=== PATIENT | female | born 1965 | race Caucasian/White ===

== ENCOUNTER 2017-12-07 18:11 | Emergency (ER) | payer BC, OTHER ==
[~2017-12-07] VITALS: Ht 157.5 cm; Wt 85.5 kg
[2017-12-07 18:16] VITALS: TEMP 36.7; Ht 157.5 cm; Wt 85.5 kg
--- NOTE | 2017-12-07 18:55 | DIAGNOSTIC IMAGING REPORT ---
R FINGER(S) MIN 2 VIEWS ROUTINE CLINICAL HISTORY: right pinky finger pain pain COMPARISON: None. DISCUSSION: Soft tissue edema about the proximal interphalangeal joint. Osseous structures show no acute process. Slight deformity distal aspect proximal phalanx possibly secondary to old posterior back changes. Small old avulsion base distal phalanx. Soft tissue edema. No acute bony abnormality. IMPRESSION: No acute bony abnormality. Slight lateral position of the middle and distal phalanges relation to the proximal may be positional and/or muscle spasm bases. Deformity distal aspect proximal phalanx felt to be secondary to old trauma. Soft tissue edema. The above report was generated using voice recognition software. It may contain grammatical, syntax or spelling errors. Electronically signed by: Mando Martinez M.D. 12/07/2017 6:54 PM Dictated Date/Time: 12/07/2017 6:52 PM
--- NOTE | 2017-12-07 19:35 | EMERGENCY ROOM VISIT NOTE ---
ED Visit Note First contact with patient: 18:55 CHIEF COMPLAINT: Finger injury HISTORY OF PRESENT ILLNESS: This 52-year-old female patient presents to the emergency department immediately after injuring the right fifth finger when she accidentally caught it on the edge of the counter The patient rates the pain as shooting and 4/10. The patient has limited range of motion of the finger. No numbness or tingling. No lacerations. No other injuries. The patient has had previous fracture to this finger. The patient has taken nothing for the pain. REVIEW OF SYSTEMS: A 6 system review of systems was completed with positives and pertinent negatives in the HPI. ALLERGIES: No known drug allergies MEDICATIONS: Adderall PMH: Otherwise healthy SOCIAL HISTORY: Denies tobacco use. The patient is employed. PHYSICAL EXAM: Vital Signs: Reviewed Nurse's notes, vital signs stable. GENERAL : 52-year-old female, in no acute distress, but appears to be in pain, well- developed, well-nourished. MUSCULOSKELETAL: The right fifth finger is slightly flexed at the PIP joint. There is swelling at the PIP joint. She has difficulty extending the finger at the PIP and DIP joint. There is no laceration. Capillary refill less than 2 seconds. No tenderness of the remaining fingers or hand. Full range of motion of the wrist. NEURO: Alert and oriented to person, place, and time. Normal sensation to light and sharp touch. EMERGENCY DEPARTMENT COURSE: I examined the patient. An x-ray of the right fifth finger was reviewed Patient Name: OLLIE BERUMEN Unit Number: [id number] Dictated: 12/07/171851 Transcribed: 12/07/171851 MS Printed Date/Time: [~ rep prt dt]/[~ rep prt tm] [~ rep ct labl] - [~ rep ct ivnm] [facility] [place] [address] Dictated: 12/07/171851 Transcribed: 12/07/171851 MS Printed Date/Time: [~ rep prt dt]/[~ rep prt tm] [~ rep ct labl] - [~ rep ct ivnm] IMPRESSION: No acute bony abnormality. Slight lateral position of the middle and distal phalanges relation to the proximal may be positional and/or muscle spasm bases. Deformity distal aspect proximal phalanx felt to be secondary to old trauma. Soft tissue edema. The above report was generated using voice recognition software. It may contain grammatical, syntax or spelling errors. Electronically signed by: Mando Martinez M.D. 12/07/2017 6:54 PM Dictated Date/Time: 12/07/2017 6:52 PM The status of this report is Signed. Draft = Not yet reviewed or approved by Radiologist. Signed = Reviewed and approved by Radiologist. <AttendingPhy></AttendingPhy> <FamilyPhy>Julissa Gomez D.O.</FamilyPhy> < PrimaryPhy>Julissa Gomez D.O.</PrimaryPhy> <UnitNumber>[id number]</UnitNumber > <VisitNumber>[id number]</VisitNumber> <PatientName>OLLIE BERUMEN</ PatientName> <DateOfBirth>1965</DateOfBirth> <Location>[facility]</Location> < ServiceDate>12/07/17</ServiceDate> <MNE>ESINDI</MNE> <OrderingPhy>ED, PROTOCOL</ OrderingPhy> <OrderingPhyMNE>f rep ord dr moreno</OrderingPhyMNE> <DictatingPhyMNE> f rep dict dr moreno</DictatingPhyMNE> <CCListMNE>f rep ct herone</CCListMNE> < AdmittingPhyMNE>f pt admit dr moreno</AdmittingPhyMNE> <AttendingPhyMNE>f pt attend dr moreno</AttendingPhyMNE> <ConsultingPhyMNE>f pt consult dr moreno</ConsultingPhyMNE> <FamilyPhyMNE>f pt fam dr moreno</FamilyPhyMNE> <OtherPhyMNE>f pt other dr moreno</OtherPhyMNE> < PrimaryPhyMNE>f pt prim care dr moreno</PrimaryPhyMNE> <ReferringPhyMNE>f pt referring dr moreno</ReferringPhyMNE> The finger was immobiziled by a metal splint under my direction and the position was satisfactory. Neurovascular status rechecked and intact. The patient was discharged home in good condition. DIAGNOSIS: Right fifth finger injury-questionable tendon injury DISCHARGE INSTRUCTIONS: Ice and elevation for 24-48 hrs. Keep the metal splint in place. Tylenol and ibuprofen as needed for pain Ibuprofen 800 mg and/or Tylenol 1000 mg every 8 hours. You may also alternate these medications for more effective pain relief: Ibuprofen --4 HRS--> Tylenol --4 HRS--> ibuprofen --4 HRS--> Tylenol .... Please take Ultram 1 tab every 4 hours for severe pain. This may be taken with Tylenol and ibuprofen. Please call the orthopedic doctor in the morning for a follow-up appointment. This chart was completed in part utilizing [employer] Speech Voice Recognition software. Attempts were made to minimize the grammatical errors, random word insertions, pronoun errors and incomplete sentences. Any formal questions or concerns about the content, text or information contained within the body of this dictation should be directly addressed to the provider for clarification.
[2017-12-07] MEDS ORDERED: TRAM-10 PO (19:37)
[2017-12-07] MEDS ORDERED: PRLSR20 PO (19:47)
[2017-12-07] MEDS ORDERED: AMPH20CA3 PO (19:47)
[2017-12-07] MEDS ORDERED: AMPH10TA2 PO (19:47)
[2017-12-07 19:54] VITALS: BP 135/90; PULSE 90; O2SAT 97
== END 2017-12-07 19:55 | disposition home or self-care (01) ==
LOC: C.EDB 18:12 → C.EDD 19:55
DX: S69.91XA Unspecified injury of right wrist, hand and finger(s), initial encounter (principal); W22.09XA Striking against other stationary object, initial encounter; Z79.899 Other long term (current) drug therapy

== ENCOUNTER 2023-10-17 05:14 | Observation (INO) ==
--- NOTE | 2023-09-27 10:43 | PAT Medication Instructions ---
Medication Instructions Date of Service September 27, 2023 Home Medications dextroamphetamine-amphetamine 10 mg tablet (Adderall) 10 mg PO BID dextroamphetamine-amphetamine 20 mg tablet (Adderall) 20 mg PO QAM ibuprofen 600 mg tablet 600 mg PO TID PRN minocycline 50 mg capsule 50 mg PO UD PRN omeprazole 20 mg capsule,delayed release 20 mg PO QAM triamcinolone acetonide 0.1 % topical cream 1 applic topical UD PRN valacyclovir 500 mg tablet 1,000 mg PO UD PRN furosemide 20 mg tablet 20 mg PO Q OTHER DAY Continue as directed minocycline 50 mg capsule 50 mg PO UD PRN(if needed) valacyclovir 500 mg tablet 1,000 mg PO UD PRN(if needed) ASK your surgeon for instructions ibuprofen 600 mg tablet 600 mg PO TID PRN STOP taking 24 hours before surgery triamcinolone acetonide 0.1 % topical cream 1 applic topical UD PRN DO NOT take the morning of surgery dextroamphetamine-amphetamine 10 mg tablet (Adderall) 10 mg PO BID dextroamphetamine-amphetamine 20 mg tablet (Adderall) 20 mg PO QAM Take morning of surgery With a small sip of water, OTHERWISE NOTHING TO EAT OR DRINK AFTER MIDNIGHT: omeprazole 20 mg capsule,delayed release 20 mg PO QAM Take evening before surgery dextroamphetamine-amphetamine 10 mg tablet (Adderall) 10 mg PO BID Other Notes If you have any questions please call us at [phone] or [phone] or [phone] or [phone]
--- NOTE | 2023-10-05 10:26 | Anesthesiology Consultation ---
Date of Service October 05, 2023 Assessment & Plan (1) Encounter for pre-operative examination: - Infectious disease screening: Per assessment on 10/05/23: No known infectious disease contacts or current infectious disease symptoms. No noted Covid positive test result in past 90 days. - Outpatient joint assessment: Pt currently scheduled for inpatient pathway. If surgeon requests review for outpatient joint pathway, patient is an acceptable candidate for outpatient joint program from anesthesia standpoint pending surgeon's office assessment that patient is motivated, has good support and completes Same Day Joint Program preop requirements. - PCP visit (09/20/23): "acceptable risk for proposed procedure" - Hx PONV: Patient reports had good outcome when scope patch used for right knee surgery performed 2020. Will order scope patch for DOS. Chart Review Chart Review: Acceptable Risk for Surgery and Patient seen in Pre Admission Testing Teaching & Discussion Pre-Anesthesia Teaching/Discussion Notes: Instructed NPO after midnight before surgery,except medications with 15 cc of water. Medication instructions provided according to the PAT guidelines. History Surgery Operation Date: 10/17/23 10:20 Proposed Procedures p Left Total Knee Arthroplasty - Otis Magnolia Fragoso MD Height/Weight Height: 5 ft 2.25 in Weight: 82.1 kg Allergies Allergy/AdvReac Type Severity Reaction Status Date / Time cephalexin AdvReac Intermediate stomach Verified 09/29/23 14:43 pain Medications Home Medications Medication Instructions Recorded Confirmed Last Taken dextroamphetamine-amphetamine 10 10 mg PO BID 07/09/21 09/27/23 Unknown mg tablet (Adderall) dextroamphetamine-amphetamine 20 20 mg PO QAM 07/09/21 09/27/23 07/15/21 mg tablet (Adderall) ibuprofen 600 mg tablet 600 mg PO TID PRN Pain 07/09/21 09/27/23 Unknown minocycline 50 mg capsule 50 mg PO UD PRN FOLLICULITIS 07/09/21 09/27/23 Unknown omeprazole 20 mg capsule,delayed 20 mg PO QAM 07/09/21 09/27/23 07/16/21 05:30 release triamcinolone acetonide 0.1 % 1 applic topical UD PRN Skin 07/09/21 09/27/23 Unknown topical cream Irritation valacyclovir 500 mg tablet 1,000 mg PO UD PRN Cold Sores 07/09/21 09/27/23 Unknown furosemide 20 mg tablet 20 mg PO Q OTHER DAY 09/27/23 09/27/23 Unknown Past Medical History Medical History Prediabetes History of blood transfusion R/t partial hysterectomy/blood loss (2002) History of COVID-19 x3, most recent 2021- symptoms resolved ADD (attention deficit disorder) Cervical cancer 2002, partial hysterectomy Micha's disease Under surveillance, 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 Acid reflux Exercise / Class Metabolic Activity II 4-5 Yardwork/Stairs/Walk up hill (one FS (no CP, no SOB)) Past Family History Family History Other No family history of adverse response to anesthesia Past Surgical History Surgical History History of [place]roscopic [place] [facility] Nausea and vomiting after administration of anesthetic agent with c-sections Scope patch used with 06/2021 right knee arthroscopy at [facility] History of root canal procedure 08/2023 Hx of tooth extraction History of hemorrhoidectomy History of x4 History of partial hysterectomy Past Anesthesia History No Hx of Anesthesia Complications and No Family Hx of Anesthesia Complications History of PONV History of PONV and Hx of Motion Sickness Social History Smoking Status: Never smoker Do You Dip or Chew Tobacco: No Hx Alcohol Use: Yes Alcohol type: wine alcohol intake frequency: a few times a week Hx Substance Use: No substance use type: does not use Review of Systems Patient denies chest pain, shortness of breath, dyspnea on exertion, fever, chills, cough, wheezing, palpitations. Physical Exam Vital Signs VITALS BP 113/76 P 74 TEMP 98.0 SP02 96%RA RESP 18 PHYSICAL Full cervical extension range of motion. Full TMJ range of motion. TMD 3 finger breaths Mallampati Score 2 Dentition: intact, + upper front crowns, lower right side crown Lungs: clear throughout to auscultation Cardiac: regular rate and rhythm, no murmurs noted Spine: normal Carotid arteries: negative bruit Extremities: no LE edema Lab Results Anesthesia Preop Results Results Anesthesia Widget: WBC 6.07 K/ul (4.8-10.8) 10/05/23 Hgb 13.0 g/dl (12.0-16.0) 10/05/23 Hct 38.0 % (37.0-47.0) 10/05/23 Plt 321 K/uL (130-400) 10/05/23 Na 138 mmol/L (136-145) 10/05/23 K 3.7 mmol/L (3.5-5.1) 10/05/23 Cl 104 mmol/L (98-107) 10/05/23 CO2 28 mmol/L (21-32) 10/05/23 BUN 19 mg/dl (6-23) 10/05/23 Creat 0.83 mg/dl (0.6-1.2) 10/05/23 Glucose Level 96 mg/dl (70-99(Fasting)) 10/05/23 PTT 28.2 Seconds (21.0-31.0) 10/05/23 Urine Color Yellow 10/05/23 Urine Appearance Clear (Clear) 10/05/23 Urine pH 5.5 (4.5-7.5) 10/05/23 Urine Specific [place] 1.026 (1.000-1.030) 10/05/23 Urine Protein Trace (Negative) H 10/05/23 Urine Glucose (UA) Negative (Negative) 10/05/23 Urine Ketones Trace (Negative) H 10/05/23 Urine Blood Negative (Negative) 10/05/23 Urine Nitrite Negative (Negative) 10/05/23 Urine Bilirubin Negative (Negative) 10/05/23 Urine Urobilinogen Negative (Negative) 10/05/23 Urine Leukocyte Esterase 1+ (Negative) H 10/05/23 Urine WBC (Auto) 1-5 /hpf (0-5) 10/05/23 Urine RBC (Auto) 5-10 /hpf (0-4) H 10/05/23 Urine Hyaline Casts (Auto) 1-5 /lpf (0-5) 10/05/23 Urine Epithelial Cells (Auto) >30 /lpf (0-5) H 10/05/23 Urine Bacteria (Auto) Negative (Negative) 10/05/23 Blood Type A Positive 10/05/23 Antibody Screen NEGATIVE 10/05/23 Testing Electrocardiogram Date: 09/20/23 Findings: + NSR @ (80) Chest X-Ray Date: 10/05/23 FINDINGS: Cardiac and mediastinal and hilar silhouettes are within normal limits. No pneumothorax, pleural effusion, airspace consolidation or pulmonary edema. Bones appear grossly intact. IMPRESSION: No acute process.
[~2023-10-17 05:14] MED LIST: CHECK SCOPOLAMINE PATCH PLACEMENT SCH
--- OUTSIDE RECORDS SUMMARY | 2023-10-17 05:24 | External Medical Summary | Summary of Care ---
Author Name Unknown Organization [facility] Address [address] [place] [address] Phone [phone] Care Team Providers Care Tax Services Manager Name Role Phone Akil Watters MD Primary Care Provider [phone] Reason for Visit * Reason Onset Date Comments Health Maintenance 10/13/2023 Encounter Details Date Type Department Care Team (Late st Contact Info) Description 10/13/2023 Telephone Family Practice [facility] [address] [place] [address] Akil Watters MD [address] [place] [address] Health Maintenance Allergies Active Allergy Reactions Criticality Noted Date Comments Cephalexin 09/06/2012 Stomach pain documented as of this encounter (statuses as of 10/13/2023) Medications Medication Sig Dispensed Refills Start Date End Date Status Benzonatate 100 MG Oral Capsule (Tessalon Perles) Take 1 Capsule (100 mg) as needed in the morning AND 1 Capsule (100 mg) as needed at noon AND 1 Capsule (100 mg) as needed in the evening by mouth for Cough. Do not cut, crush, or chew.. 50 Capsule 1 12/22/2021 Active Additional Information Patient not taking.Reported on 09/20/2023 valACYclovir HCl 1 GM Oral Tablet (Valtrex)Indications:H erpetic gingivostomatitis Take 1 Tablet by mouth in the morning and 1 Tablet before bedtime. 4 Tablet 5 01/02/2023 Active Minocycline HCl 50 MG Oral Capsule take 1 capsule once daily IN THE MORNING 30 Capsule 11 03/01/2023 Active Omeprazole 20 MG Oral Capsule Delayed Release (PriLOSEC)Indications: Encounter for long-term (current) use of medications Take 1 Capsule by mouth in the morning. 1 hour before the first meal of the day.. 90 Capsule 1 08/08/2023 Active Penicillin V Potassium 500 MG Oral Tablet (Veetids) take 1 tablet by mouth every 6 hours until finished 0 08/02/2023 Active Furosemide 20 MG Oral Tablet (Lasix) Take one every other day in the morning 60 Tablet 3 08/07/2023 Active Celecoxib 200 MG Oral Capsule (CeleBREX)Indications: Generalized osteoarthritis Take 1 Capsule by mouth in the morning. For pain. 90 Capsule 3 08/07/2023 Active Additional Information Patient not taking.Reported on 09/20/2023 Minoxidil for Women 2 % External Solution (Minoxidil) Apply 1 mL of solution to affected areas of scalp twice daily for one month 60 mL 1 08/07/2023 Active Amphetamine-Dextroamph et ER 20 MG Oral Capsule Extended Release 24 Hour (Adderall XR)Indications:Attenti on deficit disorder without hyperactivity,MEDICATI ON USE AGREEMENT Take 1 Capsule by mouth in the morning. Do not cut, crush, or chew.. 90 Capsule 0 09/01/2023 Active Amphetamine-Dextroamph etamine 10 MG Oral Tablet (Adderall)Indications: Attention deficit disorder without hyperactivity,MEDICATI ON USE AGREEMENT Take 2 Tablets by mouth in the morning. 3 month supply. 180 Tablet 0 09/28/2023 Active documented as of this encounter (statuses as of 10/13/2023) Active Problems Problem Noted Date Diagnosed Date Dependent edema 08/07/2023 Generalized osteoarthritis 08/07/2023 Prediabetes 08/07/2023 Obesity, Class I, BMI 30.0-34.9 (see actual BMI) 02/14/2023 Gastroesophageal reflux disease with esophagitis 06/20/2018 Rosacea 01/21/2014 MEDICATION USE AGREEMENT 06/22/2012 Attention deficit disorder without hyperactivity 06/01/2009 documented as of this encounter (statuses as of 10/13/2023) Resolved Problems Problem Noted Date Diagnosed Date Resolved Date History of cervical cancer 03/08/2018 0 06/20/2018 Spider angioma 01/21/2014 06/16/2021 Poikiloderma of [place] 01/21/201405/28 Other seborrheic keratosis 01/21/2014 0 06/20/2018 Other chronic allergic conjunctivitis 03/09/2010 07/13/2017 Herpetic gingivostomatitis 03/09/2010 0 07/13/2017 ADVANCE DIRECTIVE INFORMATION 11/05/2008 03/08/2018 Overview: No, Advance Directive brochure offered , patient declined. DYSFUNCT EUSTACHIAN TUBE 12/04/2006 Acute bronchitis, antibiotics not indicated 10/19/2004 11/24/2007 Acute nasopharyngitis 10/19/20042006 Epistaxis 10/19/2004 12/04/2006 Major depressive disorder 03/15/2004 Overview: ICD-10 update of inactive term Hemorrhoids 07/18/2003 07/13/2017 Cancer of cervix 03/03/2003 03/08/2018 Allergic rhinitis 08/18/1999 07/13/2017 documented as of this encounter (statuses as of 10/13/2023) Immunizations Name Administration Dates Next Due PPD 08/31/2007,03/27/2005 Seasonal Influenza, Split, IIV3, With Preserve, Inj 10/27/2008 TDAP (age 10 and older)(Boostrix) 07/09/2020 TDAP (age 11 and older)(Adacel) 08/29/2006 documented as of this encounter Social History Tobacco Use Types Packs/Day Years Used Date Smoking Tobacco: Never Smokeless Tobacco: Never Alcohol Use Standard Drinks/Week Comments Yes 0 (1 standard drink = 0.6 oz pur e alcohol) occ PHQ-2 Answer Date Recorded PHQ Adult Total Score 0 09/20/2023 Hunger Vital Sign Answer Date Recorded Within the past 12 months, y ou worried that your food would run out before you got the money to buy more. Never true 02/15/20 23 Within the past 12 months, t he food you bought just didn't last and you didn't have money to get more. Never true 02/14/2023 Sex and Gender Information Value Date Recorded Sex Assigned at Female 02/14/2023 9:04 AM EDT Gender Identity Female 02/14/2023 9:04 AM EDT Sexual Orientation Straight 02/14/2023 9: 04 AM EDT Job Start Date Occupation Industry Not on file Not on file Not on file documented as of this encounter Miscellaneous Notes * Telephone Encounter - Darlene Aly LPN - 10/13/2023 8:49 AM EST Care Gaps Comprehensive Care Outreach Last Office/Telemedicine Visit: 09/20/2023 (in office), 02/14/2023 (telemedicine) Next Office Visit: Visit date not found Hemoglobin AIC Results: Lab Results Component Value Date/Time HEMOGLOBIN A1C - [facility] 5.9 (H) 07/15/2021 12:21 PM Reviewed Health Maintenance below: Health Maintenance Topic Date Due Hepatitis B (1 of 3 - 3-dose series) Never done COVID-19 Vaccine (1) Never done Hepatitis C Screening Never done Colorectal Cancer Screening Never done Zoster Vaccines (1 of 2) Never done HbA1c 07/15/2022 Ov Cologuard follow will returned Lab Declined Care Gap Outreach Action Taken: Spoke to patient documented in this encounter Plan of Treatment Upcoming Encounters Date Type Department Care Team (Late st Contact Info) Description 12/11/2023 2:20 PM EST Office Visit Nutrition & Weight Management, [facility] [address] [place] [id number] Sudha Douglas PA-C [address] [place] [id number] Health Maintenance Due Date Last Done Comments Hepatitis B (1 of 3 - 3-dose series) 1965 COVID-19 Vaccine (#1) 02/18/1965 Hepatitis C Screening 1982 Cologuard 2009 Colonoscopy 2009 Colorectal Cancer Screening 2009 Fecal Occult Blood Test 2009 Sigmoidoscopy 2009 Zoster Vaccines (1 of 2) 2014 HbA1c 07/15/2022 07/15/2021 Influenza Vaccine (FLU shot) (#1) 2023 10/27/2008, 10/27/2008 Mammogram 08/04/2024 08/04/2023, 04/2015, 03/30/2015, Additional history exists Depression Screening 09/20/2024 09/20/2023 Lipid Panel 07/15/2026 07/15/2021, 06/2014, 10/27/2008 DTaP,Tdap,and Td Vaccines (3 - Td or Tdap) 07/09/2030 07/09/2020, 08/29/2006, 04/27/1993 GARDASIL-HPV IMMUNIZATION SERIES Aged Out No longer eligible based on patient's age to complete this topic MENINGOCOCCAL (MENACTRA/MENVEO) Aged Out No longer eligible based on patient's age to complete this topic Pneumococcal Vaccine: Pediatrics (0 to 5 Years) and At-Risk Patients (6 to 64 Years) Aged Out No longer eligible based on patient's age to complete this topic documented as of this encounter Medical Devices Not on filedocumented as of this encounter Care Teams Tax Services Manager Relationship Specialty Start Date End Date Akil Watters MD [address] [place] [address] PCP - General Family Medicine 01/25/20 documented as of this encounter
[2023-10-17] MEDS ORDERED: ROPIVACAINE 0.5% HCL/PF 150 MG, BUPIVACAINE 0.75% MPF 20 ML, EPINEPHrine 0.15 MG, Ketor... INFIL SCH (06:00)
[2023-10-17] MEDS ORDERED: TRANEXAMIC ACID 1,000 MG **IV Intra-op IV SCH (06:00)
[2023-10-17] MEDS ORDERED: LR 500ML BOLUS, THEN 15ML/HR IV SCH (06:00)
[2023-10-17] MEDS ORDERED: ACETAMINOPHEN 500 MG TAB PO SCH (06:00)
[2023-10-17] MEDS ORDERED: LR 60ML/HR IV SCH (06:00)
[2023-10-17] MEDS ORDERED: SCOPOLAMINE 1 MG TDSY TD SCH (06:00)
[2023-10-17] MEDS ORDERED: ceFAZolin 2000MG 2,000 MG/15 ML SYR IV SCH (06:00)
[2023-10-17] MEDS ORDERED: TRANEXAMIC ACID 1,000 MG **IV Pre-op IV SCH (06:00)
[2023-10-17] MEDS ORDERED: Scopolamine 1 MG TDSY TD SCH (06:00)
[2023-10-17] MEDS: CeleBREX 200 MG CAP PO SCH ×2 (06:03→06:40)
[2023-10-17] MEDS ORDERED: BUPIVACAINE 0.25% PF 30 ML VIAL ONE (06:16)
[2023-10-17] MEDS ORDERED: BUPIVACAINE 0.5 % 5 MG/1 ML PF 10ML VIAL ONE (06:16)
--- NOTE | 2023-10-17 06:35 | History & Physical Bridge Note ---
Date of Service October 17, 2023 History & Physical Bridge Note I have examined the patient, reviewed the History & Physical and in the interval since the performance of the History & Physical I have noted the following changes of clinical significance: no changes noted
[2023-10-17] MEDS ORDERED: ORTHO JOINT ANESTHETIC ONE (06:38)
[2023-10-17] MEDS ORDERED: MIDAZOLAM HCL 1 MG/ML 2ML VIAL ONE ×3 (06:44→08:32)
[2023-10-17] MEDS ORDERED: fentaNYL citrate PF 100 MCG/2 ML VIAL ONE (06:44)
[2023-10-17] MEDS ORDERED: ONDANSETRON INJ 2 MG/ML 2 ML VIAL IV PRN ×2 (06:59→09:42)
[2023-10-17] MEDS ORDERED: ATROPINE SULFATE 0.1 MG/ML 10ML SYR IV PRN (06:59)
[2023-10-17] MEDS ORDERED: fentaNYL citrate PF 100 MCG/2 ML VIAL IV PRN (06:59)
[2023-10-17] MEDS ORDERED: ePHEDrine sulfate 50 MG/ML AMP IV PRN (06:59)
[2023-10-17] MEDS ORDERED: PROPOFOL IV EMULSION 10 MG/ML 20 ML VIAL IV ONE ×3 (07:09→09:25)
--- NOTE | 2023-10-17 09:30 | Post Operative Brief Note ---
Immediate Post Op Note v1 Date of Surgery October 17, 2023 Pre & Post Diagnosis Operation Date: 10/17/23 07:00 Pre-Op Diagnosis: Left knee degenerative joint disease Post-Op Diagnosis: Left knee degenerative joint disease I identified the patient and participated in the time-out.: Yes Procedure Operation Date: 10/17/23 07:00 Actual Procedures p Left Total Knee Arthroplasty(Left) - Otis Fragoso MD Surgeon Otis Fragoso MD Clinical Social Work Aide LEYDA Cordon PA-C (No fellow avail) Estimated Blood Loss 50 Findings Consistent with Post-Op Diagnosis Fluids 1000 cc Specimens Left knee contents Anesthesia Type MAC Spinal Regional Complications none
--- NOTE | 2023-10-17 09:30 | Operative Report ---
Post Operative Report Pre & Post Diagnosis Operation Date: 10/17/23 07:00 Pre-Op Diagnosis: Left knee degenerative joint disease Post-Op Diagnosis: Left knee degenerative joint disease I identified the patient and participated in the time-out.: Yes Procedure Operation Date: 10/17/23 07:00 Actual Procedures p Left Total knee replacement, imageless computer assisted navigation (Left) - Otis Fragoso MD Surgeon Otis Fragoso MD Claims Director LEYDA Cordon PA-C (No fellow avail) Estimated Blood Loss 50 Findings See Below Examined Under Anesthesia: ROM -- There was 5 degrees to 125 degrees of flexion, when extended her knee the was a palpable clunk. Ligamentous examination -- revealed stable Simi, posterior drawer, varus and valgus stress at 5 and 30 degrees. [place] Grade IV changes of medial compartment, grade II-III changes patellofemoral compartment, grade II changes lateral compartment. Fluids 1000 cc Specimens Left knee contents Anesthesia Type MAC Spinal Regional Complications none Indications This is a 58-year-old female who has clinical and radiographic findings consistent with osteoarthritis of the a left knee and varus alignemnt. I recommended that a left total knee replacement be performed. The patient understands the risks of surgery, which include but not limited to: bleeding, infection, re-operation, damage to nerves and arteries, continued knee pain, knee stiffness, DVT, and . The patient understands all of these instructions and explanations, all of his questions have been satisfactorily addressed and the patient has elected to proceed. Informed consent was signed. Description of Procedure IMPLANTS: 1. Femur: Triathlon #3 Left PS, with distal femoral pegs. 2. Tibia: Triathlon #3 Beemer. 3. Insert: Triathlon #3 x 11 mm PS X3 poly. 4. Patella: Triathlon A29 x 8 mm X3 poly. 5. Palacos cement. LEYDA Cordon PA-C is assisting with positioning, retracting, and closure due to fellow not available. Procedure: The patient was taken to the Operating Room and placed in the supine position after spinal and adductor canal nerve block was administered. My initials and a multidisciplinary time-out were used to identify the left leg as the correct operative limb. A tourniquet was placed high in the thigh. Prior to the incision, 2 grams of intravenous Ancef were given. The left leg was then prepped and draped in a standard sterile fashion. An Esmarch was used to exsanguinate the leg and the tourniquet was inflated to 250 mmHg. The planned mid-line 20 cm incision was created exposing the extensor mechanism. The medial parapatellar arthrotomy was made and the patella was everted. The patella was addressed first. It was prepared by reaming from 24 mm down to 15 mm. An A29 button was found to fit best. The peg holes were made in the standard fashion. The femur was addressed next and using computer assisted OrthoAlign with 3 degrees of flexion and 0 degrees of valgus, removing 10 mm in the standard fashion for the distal cut. The cut was made and the 4-in-1 cutting block for a size 3 femur was placed. These cuts and the cuts to place the box were made in the standard fashion. The distal peg were created after testing knee stability with trial components in and using the trial femur as a guide in the standard fashion. Our attention was then drawn to the tibia cut with using imageless computer assisted OrthoAlign, taking 2 mm from the medial low side. There was sufficient extension and flexion gap to fit a 9 mm spacer after using cutting block to remove 1.5 mm off medial side. A #3 Tibial baseplate fit well. A trial with a 9 mm spacer showed excellent stability in both flexion and extension, with good ligament balance, and thumbs free patellar tracking. Range of motion of 0-130 degrees. The tibial baseplate was prepped for the keel and stem. All components were removed. 90 ml of total knee cocktail were injected into the soft tissues and periosteum. All surfaces were copiously irrigated prior to placement of the components. The femoral component followed by Tibial baseplate were cemented in place and a 11 mm trial placed. Next, the patellar button was placed using the same cement. Once the cement had cured, the range of motion and stability were unchanged. The 11 mm X3 poly was placed. Again, the range of motion and stability were unchanged. The tourniquet was deflated. Hemostasis was obtained. The extensor mechanism was closed with 1-0 Vicryl and 0 Stratafix with the knee bent approximately 60 degrees in a standard fashion. The peritenon and deep fascia was closed with 2-0 Vicryl. The subcutaneous layer was closed with 3-0 Vicryl. The skin was closed with Zipline and shield. The limb was cleaned and dried. 4x4 dressing was placed over top followed by ABDs, sterile Webril, and a foot to thigh Ham bandage. The patient was then transferred to the Recovery Room in stable condition. The sponge and needle counts were correct. POST-OP INSTRUCTIONS: The patient will be WBAT. The patient will be admitted to the hospital. Complete 24-hour course antibiotics. Labs will be obtained during the stay. DVT prophylaxis will included Eliquis for 6 weeks, TEDs, and mechanical foot pumps while in hospital. The dressing will be changed postop day #2-3 and covered with a Silverlon dressing. I attest to the content of the Intraoperative Record and any orders documented therein. Any exceptions are noted below.
[2023-10-17] MEDS ORDERED: bisacodyL 10 MG SUPP PR PRN (09:42)
[2023-10-17] MEDS ORDERED: NALOXONE HCL 0.4 MG/1 ML VIAL/CARP IV PRN (09:42)
[2023-10-17] MEDS ORDERED: diphenhydrAMINE 50 MG/ML VIAL IV PRN (09:42)
[2023-10-17] MEDS ORDERED: METOCLOPRAMIDE HCL INJ 5 MG/ML 2 ML VIAL IV PRN (09:42)
[2023-10-17] MEDS ORDERED: HYDROmorphone INJ 0.5 MG/0.5 ML SYR IV PRN (09:42)
[2023-10-17] MEDS ORDERED: ALUMINUM/MAGNESIUM SUSP 30 ML UDC PO PRN (09:42)
[2023-10-17] MEDS ORDERED: MAGNESIUM HYDROXIDE SUSP 30 ML UDC PO PRN (09:42)
[2023-10-17] MEDS ORDERED: oxyCODONE HCL IR 5 MG TAB (IMMEDIATE RELEASE) PO PRN (09:42)
--- NOTE | 2023-10-17 09:42 | Operative Report ---
Post Operative Report Pre & Post Diagnosis Operation Date: 10/17/23 07:00 Pre-Op Diagnosis: Left knee degenerative joint disease Post-Op Diagnosis: Left knee degenerative joint disease I identified the patient and participated in the time-out.: Yes Procedure Operation Date: 10/17/23 07:00 Actual Procedures p Left Total Knee Arthroplasty(Left) - Otis Fragoso MD Surgeon Otis Fragoso MD Neurophysiologist LEYDA Cordon PA-C (No fellow avail) Estimated Blood Loss 50 Findings Consistent with Post-Op Diagnosis Specimens Knee bone and soft tissue Description of Procedure I was present during the entire case assisting with positioning, prepping, draping, wound retraction, wound closure, and dressing application. No fellow present. Please see Dr. Fragoso procedure note for specifics of the case. I attest to the content of the Intraoperative Record and any orders documented therein. Any exceptions are noted below.
[2023-10-17] MEDS ORDERED: valACYclovir HCL 500 MG TABLET PO PRN (09:45)
[2023-10-17] MEDS ORDERED: MINOCYCLINE HCL 50 MG CAP PO PRN (09:45)
[2023-10-17] MEDS ORDERED: SODIUM CHLORIDE 0.9% 1,000 ML IV SCH (09:45)
--- NOTE | 2023-10-17 11:44 | XRay Report ---
TWO VIEWS LEFT KNEE CLINICAL HISTORY: Postoperative examination. FINDINGS: AP and crosstable lateral portable views of the left knee are obtained. A left knee arthrop lasty is in near anatomic alignment. There has been undersurface remodeling of the patella. No acute fracture is seen. Soft tissue edema and subcutaneous gas are expected postsurgical findings. IMPRESSION: Expected postoperative changes status post left knee arthroplasty. No acute fracture is s een. ACT 112: Negative or not required by law. Electronically signed by: Milton Bruno M.D. 10/17/2023 11:43 AM
[2023-10-17] MEDS: ACETAMINOPHEN 500 MG TAB PO SCH ×2 (13:20→22:32)
[2023-10-17] MEDS: KETOROLAC TROMETHAMINE 15 MG/ML VIAL IV SCH ×2 (13:20→20:33)
--- NOTE | 2023-10-17 14:30 | Anesthesiology Progress Note ---
Date of Service October 17, 2023 Anesthesia Post Procedure Vital Signs Vital Signs: Temp Pulse Pulse Resp BP Pulse Ox O2 Del Method 10/17/23 13:28 Room Air 10/17/23 13:27 36.2 C L 84 18 121/80 96 Room Air 10/17/23 12:30 72 18 122/70 100 Room Air 10/17/23 12:00 36.3 C L 71 18 108/71 100 Room Air 10/17/23 11:28 36.4 C L 90 16 134/80 100 Room Air 10/17/23 11:10 36.4 C L 56 L 14 119/74 99 Room Air 10/17/23 11:00 56 L 12 103/65 96 Room Air 10/17/23 10:50 56 L 12 103/65 96 Room Air 10/17/23 10:40 58 L 15 106/60 95 Room Air 10/17/23 10:30 58 L 12 108/67 98 Room Air 10/17/23 10:20 58 L 12 118/76 98 Room Air 10/17/23 10:10 61 11 L 123/75 97 Room Air 10/17/23 10:00 77 23 103/79 97 Oxymask 10/17/23 09:50 85 20 98/66 L 94 Oxymask 10/17/23 09:44 36 C L 91 H 14 114/72 97 Oxymask 10/17/23 05:54 36.6 C 89 18 142/84 H 98 Room Air O2 Flow Rate 10/17/23 13:28 10/17/23 13:27 10/17/23 12:30 10/17/23 12:00 10/17/23 11:28 10/17/23 11:10 10/17/23 11:00 10/17/23 10:50 10/17/23 10:40 10/17/23 10:30 10/17/23 10:20 10/17/23 10:10 10/17/23 10:00 6 10/17/23 09:50 6 10/17/23 09:44 6 10/17/23 05:54 Transfer of Care Handoff Completed per policy Notes Mental Status: alert / awake / arousable and participated in evaluation Patient Amnestic to Procedure: Yes Nausea / Vomiting: adequately controlled Pain: adequately controlled Airway Patency, RR, SpO2: stable & adequate BP & HR: stable & adequate Hydration State: stable & adequate Neuraxial Anesthesia: was administered and sensory block is resolving Anesthetic Complications: no major complications apparent and Pt Satisfied with anesthetic care
[2023-10-17] MEDS: ceFAZolin 2000MG 2,000 MG/15 ML SYR IV SCH ×2 (14:31→22:32)
[2023-10-17] MEDS ORDERED: AMPHETAMINE ASP/SULF/DEXTRAMPH 5 MG TAB PO SCH (15:00)
--- NOTE | 2023-10-17 15:40 | Orthopedic Progress Note ---
Date of Service October 17, 2023 Assessment & Plan (1) Osteoarthritis of left knee: Plan: POD #0 s/p L TKA, doing as well as expected. Resume diet. WBAT with walker. OOB to chair. Continue pain control. Check labs tomorrow. DVT prophylaxis: TEDs 3 weeks, foot pumps while in hospital, Eliquis 2.5 mg BID for 6 weeks. PT/OT. Change dressing to Silverlon Post-op day 2-3. D/C planning. Present on Admission?: Yes Admission and Anticipated Discharge Date Admission Date: October 17, 2023 Subjective Doing well, no complaints. Was up and went to bathroom earlier today. Physical Exam Physical Exam: LLE: BCR < 2 sec. Sensation to light touch intact distally. Wiggling ankle and toes. Calf soft and non-tender. Dressing is clean, dry, intact. Unable to do a straight leg raise. Results & Data Vital Signs (Past 12 Hours) Vital Signs Temp Pulse Pulse Resp BP Pulse Ox O2 Del Method 10/17/23 14:35 36.4 C L 59 L 18 111/66 98 Room Air 10/17/23 13:28 Room Air 10/17/23 13:27 36.2 C L 84 18 121/80 96 Room Air 10/17/23 12:30 72 18 122/70 100 Room Air 10/17/23 12:00 36.3 C L 71 18 108/71 100 Room Air 10/17/23 11:28 36.4 C L 90 16 134/80 100 Room Air 10/17/23 11:10 36.4 C L 56 L 14 119/74 99 Room Air 10/17/23 11:00 56 L 12 103/65 96 Room Air 10/17/23 10:50 56 L 12 103/65 96 Room Air 10/17/23 10:40 58 L 15 106/60 95 Room Air 10/17/23 10:30 58 L 12 108/67 98 Room Air 10/17/23 10:20 58 L 12 118/76 98 Room Air 10/17/23 10:10 61 11 L 123/75 97 Room Air 10/17/23 10:00 77 23 103/79 97 Oxymask 10/17/23 09:50 85 20 98/66 L 94 Oxymask 10/17/23 09:44 36 C L 91 H 14 114/72 97 Oxymask 10/17/23 05:54 36.6 C 89 18 142/84 H 98 Room Air O2 Flow Rate 10/17/23 14:35 10/17/23 13:28 10/17/23 13:27 10/17/23 12:30 10/17/23 12:00 10/17/23 11:28 10/17/23 11:10 10/17/23 11:00 10/17/23 10:50 10/17/23 10:40 10/17/23 10:30 10/17/23 10:20 10/17/23 10:10 10/17/23 10:00 6 10/17/23 09:50 6 10/17/23 09:44 6 10/17/23 05:54 Laboratory Results Impressions Knee X-Ray 10/17/23 09:42 TWO VIEWS LEFT KNEE CLINICAL HISTORY: Postoperative examination. FINDINGS: AP and crosstable lateral portable views of the left knee are obtained. A left knee arthroplasty is in near anatomic alignment. There has been undersurface remodeling of the patella. No acute fracture is seen. Soft tissue edema and subcutaneous gas are expected postsurgical findings. IMPRESSION: Expected postoperative changes status post left knee arthroplasty. No acute fracture is seen. ACT 112: Negative or not required by law. Electronically signed by: Milton Bruno M.D. 10/17/2023 11:43 AM
[2023-10-17] MEDS ORDERED: TRANEXAMIC ACID / 0.7% NACL 1,000 MG/100 ML BAG IV SCH (15:45)
[2023-10-17] MEDS: Scopolamine CHECK PATCH PLACEMENT SCH (15:47)
[2023-10-17] MEDS: FERROUS GLUCONATE 324 MG TAB PO SCH (17:16)
[2023-10-17] MEDS: ASCORBIC ACID 500 MG TAB PO SCH (17:16)
[2023-10-17] MEDS: DOCUSATE SODIUM 100 MG CAP PO SCH (20:33)
[2023-10-17] MEDS ORDERED: SENNA 8.6 MG TAB PO SCH (21:00)
[2023-10-17] MEDS ORDERED: CeleBREX 200 MG CAP PO SCH (21:00)
[2023-10-18] MEDS: KETOROLAC TROMETHAMINE 15 MG/ML VIAL IV SCH ×2 (02:30→08:01)
[2023-10-18] MEDS: Scopolamine CHECK PATCH PLACEMENT SCH ×2 (02:33→08:01)
[2023-10-18] MEDS: ACETAMINOPHEN 500 MG TAB PO SCH (04:52)
[2023-10-18 06:39] LABS: Hematocrit (blood only) 30.1 % (37.0-47.0); Hemoglobin 10.1 g/dl (12.0-16.0); Mean Corpuscular Hemoglobin 30.9 pg (25.0-34.0); Mean Corpuscular Hgb Conc 33.6 g/dL (32.0-36.0); Mean Platelet Volume 9.9 fL (9.4-12.4); Platelet Count 303 K/uL (130-400); RDW Coefficient of Variation 13.4 % (11.5-14.5); RDW Standard Deviation 45.5 fL (36.4-46.3); Red Blood Count 3.27 M/uL (4.20-5.40); White Blood Count 9.49 K/ul (4.8-10.8)
[2023-10-18 07:09] LABS: Calcium 8.9 mg/dl (8.6-10.3); Est GFR (Non-African American) 84.5 ml/min; Potassium 4.1 mmol/L (3.5-5.1)
[2023-10-18] MEDS: DOCUSATE SODIUM 100 MG CAP PO SCH (08:00)
[2023-10-18] MEDS ORDERED: dexAMETHasone 4 MG TAB PO SCH (08:00)
[2023-10-18] MEDS: ASCORBIC ACID 500 MG TAB PO SCH (08:00)
[2023-10-18] MEDS: FERROUS GLUCONATE 324 MG TAB PO SCH (08:00)
[2023-10-18] MEDS ORDERED: AMPHETAMINE ASP/SULF/DEXTRAMPH 20 MG TAB PO SCH (09:00)
[2023-10-18] MEDS ORDERED: MULTIVITAMIN TAB PO SCH (09:00)
[2023-10-18] MEDS ORDERED: PANTOprazole 40 MG TAB PO SCH (09:00)
[2023-10-18] MEDS ORDERED: APIXABAN 2.5 MG TAB PO SCH (09:00)
[2023-10-18] MEDS ORDERED: FUROSEMIDE 20 MG TAB PO SCH (09:00)
--- NOTE | 2023-10-18 09:49 | Orthopedic Progress Note ---
Date of Service October 18, 2023 Assessment & Plan (1) Osteoarthritis of left knee: Plan: POD #1 s/p L TKA, doing as well as expected. Resume diet. WBAT with walker. OOB to chair. Continue pain control. DVT prophylaxis: TEDs 3 weeks, foot pumps while in hospital, Eliquis 2.5 mg BID for 6 weeks. PT/OT. Change dressing to Silverlon Post-op day 2-3 with or in our office as scheduled on 10/23 due to the holiday. Plan for discharge to home today with HH. Discharge instructions reviewed. Findings discussed with Dr. Fragoso Admission and Anticipated Discharge Date Admission Date: October 17, 2023 Subjective Doing well, crying tears of darrell because of how well she feels. Very pleased. No post op nausea, vomiting. Has ambulated in room and with PT. Had a little "unsteadiness" in left knee yesterday, but improved today. Physical Exam Musculoskeletal: Left knee: Dressings clean, dry and intact. Able to actively SLR with no extensor lag. Distal pulses 1+, Strength 5/5. No calf pain with palpation. Results & Data Vital Signs (Past 12 Hours) Vital Signs Temp Pulse Resp BP Pulse Ox O2 Del Method 10/18/23 07:34 36.5 C 72 16 120/72 99 Room Air 10/18/23 02:48 36.5 C 65 16 132/80 99 Room Air 10/17/23 22:46 36.5 C 67 16 118/78 98 Room Air Laboratory Results 10/18/23 Range/Units 05:40 WBC 9.49 (4.8-10.8) K/ul RBC 3.27 L (4.20-5.40) M/uL Hgb 10.1 L (12.0-16.0) g/dl Hct 30.1 L (37.0-47.0) % MCV 92.0 (80.0-100.0) fL MCH 30.9 (25.0-34.0) pg MCHC 33.6 (32.0-36.0) g/dL RDW Std Deviation 45.5 (36.4-46.3) fL RDW Coeff of Joshua 13.4 (11.5-14.5) % Plt Count 303 (130-400) K/uL MPV 9.9 (9.4-12.4) fL Sodium 138 (136-145) mmol/L Potassium 4.1 (3.5-5.1) mmol/L Chloride 109 H (98-107) mmol/L Carbon Dioxide 24 (21-32) mmol/L Anion Gap 5 (3-11) BUN 20 (6-23) mg/dl Creatinine 0.77 (0.6-1.2) mg/dl Est Cr Clr Drug Dosing 79.0 ml/min Est GFR ( Amer) 98.0 ml/min Est GFR (Non-Af Amer) 84.5 ml/min BUN/Creatinine Ratio 26.0 H (10-20) Glucose 124 H (70-99(Fasting)) mg/dl Calcium 8.9 (8.6-10.3) mg/dl Diagnostic Findings TWO VIEWS LEFT KNEE CLINICAL HISTORY: Postoperative examination. FINDINGS: AP and crosstable lateral portable views of the left knee are obtained. A left knee arthroplasty is in near anatomic alignment. There has been undersurface remodeling of the patella. No acute fracture is seen. Soft tissue edema and subcutaneous gas are expected postsurgical findings. IMPRESSION: Expected postoperative changes status post left knee arthroplasty. No acute fracture is seen.
--- NOTE | 2023-10-18 10:39 | Discharge Summary ---
Date of Service October 18, 2023 Discharge Data Procedures Performed Operation Date: 10/17/23 07:00 Actual Procedures p Left Total Knee Arthroplasty(Left) - Otis Fragoso MD Hospital Course (1) Osteoarthritis of left knee: Patient was kept in observation overnight after undergoing an elective left total knee arthroplasty by Dr. Fragoso on October 17, 2023. Her surgery was performed with spinal anesthetic and peripheral nerve block. She tolerated the procedure well without any intraoperative complications. She was given 2 g of IV Ancef for surgical prophylaxis which was continued for 24 hours after her procedure. Postoperative x-rays were performed in the recovery room of her left knee and showed a stable left knee prosthesis with expected postoperative findings. She was allowed out of bed, weight-bear as tolerated on the left lower extremity with the assistance of a walker. She was given IV Dilaudid, oxycodone, Tylenol and Celebrex for postoperative pain control. She was started on Eliquis 2.5 mg for DVT prophylaxis and this will be continued for 6 weeks after her surgery. She was also given AV impulse boots and YARELY stockings during her inpatient stay. Her home medications were resumed. She was given a regular diet during her inpatient stay and did not develop any postoperative nausea or vomiting after her procedure. She was seen and evaluated by physical therapy and Occupational Therapy. She was deemed safe out of bed. Her postoperative dressings remained intact, clean and dry and these will be changed later by home health or as an outpatient in our office. Her vital signs remained stable. Labs remained within acceptable limits. She did not develop any postoperative symptoms from acute blood loss anemia. She was discharged to her home in stable condition on October 18, 2023. Discharge instructions were reviewed. Medications were sent to the pharmacy. She understands and agrees with plan.
== END 2023-10-18 12:26 | disposition home health service (06) ==
LOC: 3E 05:14 → ASU 05:14

== ENCOUNTER 2024-01-30 06:43 | Observation (INO) ==
--- NOTE | 2024-01-16 16:19 | Anesthesiology Consultation ---
Date of Service January 16, 2024 Assessment & Plan (1) Encounter for pre-operative examination: - PONV: will order scop patch for DOS. - Outpatient joint assessment: Patient is currently scheduled for inpatient pathway. If re-evaluated and patient/surgeon requests outpatient pathway, patient is acceptable candidate for outpatient joint program from anesthesia standpoint pending surgeon's office assessment of pt motivation/support/completion of same day joint program preop requirements. - Per senior receptionist on 01/16/24: No known infectious disease contacts, current infectious disease symptoms in past 10 days or COVID positive test result in the past 30 days. Chart Review Chart Review: Acceptable Risk for Surgery and Patient NOT seen in Pre Admission Testing History Surgery Operation Date: 01/30/24 08:10 Proposed Procedures p Right Total Knee Arthroplasty - Otis Magnolia Fragoso MD Height/Weight Height: 5 ft 2 in Weight: 83.915 kg Allergies Allergy/AdvReac Type Severity Reaction Status Date / Time cephalexin AdvReac Mild stomach Verified 01/16/24 15:23 pain Medications Home Medications Medication Instructions Recorded Confirmed Last Taken dextroamphetamine-amphetamine 10 10 mg PO BID 07/09/21 01/16/24 10/16/23 13:00 mg tablet (Adderall) dextroamphetamine-amphetamine 20 20 mg PO QAM 07/09/21 01/16/24 10/16/23 07:00 mg tablet (Adderall) minocycline 50 mg capsule 50 mg PO UD PRN FOLLICULITIS 07/09/21 01/16/24 10/11/23 omeprazole 20 mg capsule,delayed 20 mg PO QAM 07/09/21 01/16/24 10/17/23 04:30 release valacyclovir 500 mg tablet 1,000 mg PO UD PRN Cold Sores 07/09/21 01/16/24 Unknown furosemide 20 mg tablet (Lasix) 20 mg PO Q OTHER DAY 09/27/23 01/16/24 10/14/23 acetaminophen 500 mg tablet 1,000 mg PO Q8 PRN Pain 01/16/24 01/16/24 Unknown (Tylenol Extra Strength) Past Medical History Medical History Acid reflux ADD (attention deficit disorder) Cervical cancer 2002, partial hysterectomy Micha's disease Under surveillance, 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 History of blood transfusion R/t partial hysterectomy/blood loss (2002) History of COVID-19 x3, most recent 2021- symptoms resolved Prediabetes stable Past Family History Family History Other No family history of adverse response to anesthesia Past Surgical History Surgical History History of arthroscopic knee surgery rt History of x4 History of hemorrhoidectomy History of left knee replacement History of partial hysterectomy History of root canal procedure 08/2023 Hx of tooth extraction Nausea and vomiting after administration of anesthetic agent with c-sections Scope patch used with 06/2021 right knee arthroscopy at [facility] [place] Social History Smoking Status: Never smoker Do You Dip or Chew Tobacco: No Hx Alcohol Use: Yes Alcohol type: wine and hard liquor alcohol intake frequency: 0-2 drinks per day Hx Substance Use: No substance use type: does not use Lab Results Anesthesia Preop Results Results Anesthesia Widget: WBC 7.20 K/ul (4.8-10.8) 01/12/24 Hgb 12.1 g/dl (12.0-16.0) 01/12/24 Hct 36.4 % (37.0-47.0) L 01/12/24 Plt 317 K/uL (130-400) 01/12/24 Na 140 mmol/L (136-145) 01/12/24 K 3.6 mmol/L (3.5-5.1) 01/12/24 Cl 109 mmol/L (98-107) H 01/12/24 CO2 25 mmol/L (21-32) 01/12/24 BUN 21 mg/dl (6-23) 01/12/24 Creat 0.76 mg/dl (0.6-1.2) 01/12/24 Glucose Level 97 mg/dl (70-99(Fasting)) 01/12/24 PTT 26 Seconds (21-31) 01/12/24 Urine Color Dark Yellow 01/12/24 Urine Appearance Clear (Clear) 01/12/24 Urine pH 5.0 (4.5-7.5) 01/12/24 Urine Specific [place] 1.031 (1.000-1.030) H 01/12/24 Urine Protein Negative (Negative) 01/12/24 Urine Glucose (UA) Negative (Negative) 01/12/24 Urine Ketones Negative (Negative) 01/12/24 Urine Blood Negative (Negative) 01/12/24 Urine Nitrite Negative (Negative) 01/12/24 Urine Bilirubin Negative (Negative) 01/12/24 Urine Urobilinogen Negative (Negative) 01/12/24 Urine Leukocyte Esterase Negative (Negative) 01/12/24 Blood Type A Positive 01/12/24 Antibody Screen NEGATIVE 01/12/24 Testing Electrocardiogram Date: 09/20/23 NSR, rate 80 bpm Chest X-Ray Date: 10/05/23 No acute process.
[~2024-01-30 06:43] MED LIST changes: +BUPIVACAINE 0.25% PF 30 ML VIAL ONE; +BUPIVACAINE 0.5 % 5 MG/1 ML PF 10ML VIAL ONE; -CHECK SCOPOLAMINE PATCH PLACEMENT SCH; +MIDAZOLAM HCL 1 MG/ML 2ML VIAL ONE; +fentaNYL citrate PF 100 MCG/2 ML VIAL ONE
[2024-01-30] MEDS: LR 60ML/HR IV SCH (07:14)
[2024-01-30] MEDS: Scopolamine 1 MG TDSY TD SCH (07:16)
[2024-01-30] MEDS: ACETAMINOPHEN 500 MG TAB PO SCH ×2 (07:16→14:54)
[2024-01-30] MEDS: CeleBREX 200 MG CAP PO SCH (07:16)
[2024-01-30] MEDS ORDERED: LIDOCAINE 2% 2 ML VIAL/AMP(20MG/ML) INFIL ONE (08:08)
[2024-01-30] MEDS ORDERED: PROPOFOL IV EMULSION 10 MG/ML 20 ML VIAL IV ONE ×3 (08:08→11:57)
[2024-01-30] MEDS ORDERED: ONDANSETRON INJ 2 MG/ML 2 ML VIAL ONE (08:11)
[2024-01-30] MEDS ORDERED: DEXAMETHASONE SOD INJ 4 MG/ML VIAL ONE (08:11)
[2024-01-30] MEDS ORDERED: fentaNYL citrate PF 100 MCG/2 ML VIAL IV PRN (08:14)
[2024-01-30] MEDS ORDERED: ONDANSETRON INJ 2 MG/ML 2 ML VIAL IV PRN ×2 (08:14→12:37)
[2024-01-30] MEDS ORDERED: ATROPINE SULFATE 0.1 MG/ML 10ML SYR IV PRN (08:14)
[2024-01-30] MEDS ORDERED: PROMETHAZINE HCL 6.25 MG in SODIUM CHLORIDE 0.9% 50 ML IV PRN (08:14)
[2024-01-30] MEDS ORDERED: ePHEDrine sulfate 50 MG/ML AMP IV PRN (08:14)
--- NOTE | 2024-01-30 08:58 | History & Physical Bridge Note ---
Date of Service January 30, 2024 History & Physical Bridge Note I have examined the patient, reviewed the History & Physical and in the interval since the performance of the History & Physical I have noted the following changes of clinical significance: no changes noted
[2024-01-30] MEDS: TRANEXAMIC ACID 1,000 MG **IV Pre-op IV SCH (09:33)
[2024-01-30] MEDS: ceFAZolin 2000MG 2,000 MG/15 ML SYR IV SCH ×2 (09:45→18:09)
[2024-01-30] MEDS ORDERED: MIDAZOLAM HCL 1 MG/ML 2ML VIAL ONE (09:55)
--- OUTSIDE RECORDS SUMMARY | 2024-01-30 09:58 | External Medical Summary | Summary of Care ---
Author Name Unknown Organization [facility] Address [address] [facility] [place] [address] Phone [phone] Care Team Providers Care Automobile Mechanic Name Role Phone Akil Watters MD Primary Care Provider [phone] Reason for Visit * Reason Comments pre-op exam Pt here for pre op c learance for right knee replacement on 01/30/24 Encounter Details Date Type Department Care Team (Latest Contact Info) Description 01/12/2024 1:20 PM EST Office Visit Family [facility] [address] [place] [id number] Sudha Blair CRNP [address] [place] [address] Pre-operative cardiovascular examination*; Chronic pain of right knee; Generalized osteoarthritis; Prediabetes; Gastroesophageal reflux disease with esophagitis, unspecified whether hemorrhage; Attention deficit disorder without hyperactivity Allergies Active Allergy Reactions Criticality Noted Date Comments Cephalexin 09/06/2012 Stomach pain documented as of this encounter (statuses as of 01/18/2024) Medications Medication Sig Dispensed Refills Start Date End Date Status valACYclovir HCl 1 GM Oral Tablet (Valtrex)Indications: Herpetic gingivostomatitis Take 1 Tablet by mouth in the morning and 1 Tablet before bedtime. 4 Tablet 5 3 Active Minocycline HCl 50 MG Oral Capsule take 1 capsule once daily IN THE MORNING 30 Capsule 11 3 Active Furosemide 20 MG Oral Tablet (Lasix) Take one every other day in the morning 60 Tablet 3 3 Active Celecoxib 200 MG Oral Capsule (CeleBREX)Indications :Generalized osteoarthritis Take 1 Capsule by mouth in the morning. For pain. 90 Capsule 3 3 Active Minoxidil for Women 2 % External Solution (Minoxidil) Apply 1 mL of solution to affected areas of scalp twice daily for one month 60 mL 1 3 Active Omeprazole 20 MG Oral Capsule Delayed Release (PriLOSEC)Indications :Encounter for long-term (current) use of medications Take 1 Capsule by mouth in the morning. 1 hour before the first meal of the day.. 90 Capsule 1 4 Active Amphetamine-Dextroamp het ER 20 MG Oral Capsule Extended Release 24 Hour (Adderall XR)Indications:Attent ion deficit disorder without hyperactivity,MEDICAT ION USE AGREEMENT Take 1 Capsule by mouth in the morning. Do not cut, crush, or chew.. 90 Capsule 0 4 Active Amphetamine-Dextroamp hetamine 10 MG Oral Tablet (Adderall)Indications :Attention deficit disorder without hyperactivity,MEDICAT ION USE AGREEMENT Take 2 Tablets by mouth in the morning. 3 month supply. 180 Tablet 0 4 Active Ibuprofen 600 MG Oral Tablet (Motrin)Indications:A rthralgia, unspecified joint Take 1 Tablet by mouth in the morning and 1 Tablet before bedtime. 180 Tablet 1 4 Active Benzonatate 100 MG Oral Capsule (Tessalon Perles) Take 1 Capsule (100 mg) as needed in the morning AND 1 Capsule (100 mg) as needed at noon AND 1 Capsule (100 mg) as needed in the evening by mouth for Cough. Do not cut, crush, or chew.. 50 Capsule 1 2 024 Discontinued Penicillin V Potassium 500 MG Oral Tablet (Veetids) take 1 tablet by mouth every 6 hours until finished 0 3 024 Discontinued(Ky dication List Clean Up) documented as of this encounter (statuses as of 01/18/2024) Active Problems Problem Noted Date Diagnosed Date Dependent edema 08/07/2023 Generalized osteoarthritis 08/07/2023 Prediabetes 08/07/2023 Obesity, Class I, BMI 30.0-34.9 (see actual BMI) 02/14/2023 Gastroesophageal reflux disease with esophagitis 06/20/2018 Rosacea 01/21/2014 MEDICATION USE AGREEMENT 06/22/2012 Attention deficit disorder without hyperactivity 06/01/2009 documented as of this encounter (statuses as of 01/18/2024) Resolved Problems Problem Noted Date Diagnosed Date [...] as of this encounter (statuses as of 01/18/2024) Immunizations Name Administration Dates Next Due PPD 08/31/2007,03/27/2005 Seasonal Influenza, Split, IIV3, With Preserve, Inj 10/27/2008 TDAP (age 10 and older)(Boostrix) 07/09/2020 TDAP (age 11 and older)(Adacel) 08/29/2006 documented as of this encounter Social History Tobacco Use Types Packs/Day Years Used Date Smoking Tobacco: Never Smokeless Tobacco: Never Tobacco Cessation:Counseling Given: Not Answered Alcohol Use Standard Drinks/Week Comments Yes 0 [...] on file documented as of this encounter Last Filed Vital Signs Vital Sign Reading Time Taken Comments Blood Pressure 128/66 01/12/2024 1:30 PM EST Pulse 100 01/12/2024 1:30 PM EST Temperature 36.8 C (98.3 F) 01/12/2024 1:30 PM ES T Respiratory Rate 16 01/12/2024 1:30 PM EST Oxygen Saturation 98% 01/12/2024 1:30 PM EST Inhaled Oxygen Concentration - - Weight 85.2 kg (187 lb 14.4 oz) 01/12/2024 1:30 PM EST Height 158.1 cm (5' 2.25") 01/12/2024 1:30 PM ES T Body Mass Index 34.09 01/12/2024 1:30 PM EST documented in this encounter Plan of Treatment Upcoming Encounters Date Type Department Care Team (Late st Contact Info) Description 01/23/2024 8:00 AM EST Telemedicine Nutrition & Weight Management, [facility] [address] [id number] Sudha Douglas PA-C [address] [place] [address] Health Maintenance Due Date Last Done Comments Hepatitis C Screening 1982 Hepatitis B (1 of 3 - 19+ 3-dose series) 1983 Cologuard 2009 Colonoscopy 2009 Colorectal Cancer Screening 2009 Fecal Occult Blood Test 2009 Sigmoidoscopy 2009 Zoster Vaccines (1 of 2) 2014 HbA1c 07/15/2022 07/15/2021 COVID-19 Vaccine (1 - 2022-24 season) 2023 Influenza Vaccine (FLU shot) (#1) 2023 10/27/2008, [...] Not on filedocumented as of this encounter Visit Diagnoses Diagnosis Pre-operative cardiovascular examination- Primary Chronic pain of right knee Generalized osteoarthritis Generalized osteoarthrosis, unspecified site Prediabetes Other abnormal glucose Gastroesophageal reflux disease with esophagitis, unspecified whether hemorrhage Attention deficit disorder without hyperactivity Attention deficit disorder without mention of hyperactivity documented in this encounter Care Teams Automobile Mechanic Relationship Specialty Start Date End Date Akil Watters MD [address] [facility] [place] [address] PCP - General Family Medicine 01/25/20 documented as of this encounter
--- OUTSIDE RECORDS SUMMARY | 2024-01-30 09:58 | External Medical Summary | Summary of Care ---
Author Name Unknown Organization [facility] Address [address] [facility] [place] [address] Phone [phone] Care Team Providers Care Health Safety Engineer Name Role Phone Akil Watters MD Primary Care Provider [phone] Reason for Visit * Reason Comments Weight Loss The pt would like to establish care with GI nutrition and discuss weight loss options * Evaluate & Treat - Unlimited Visits (Within 30 days (routine)) - Pending Review Specialty Diagnoses / Procedures Referred By Contact Referred To Contact GI NUTRITION/IM / Gastroenterology Diagnoses Obesity, Class I, BMI 30.0-34.9 (see actual BMI) Akil Watters MD [address] [employer] [place] [address] Referral ID Status Reason Start Date Expiration Date Visits Requested Visits Authorized [id number] Pending Review Specialty Services Required 08/07/[phone] Encounter Details Date Type Department Care Team (Late st Contact Info) Description 01/23/2024 8:00 AM EST Telemedicine Nutrition & Weight Management, [facility] [address] [place] [address] Sudha Douglas PA-C [address] [place] [address] Obesity, Class I, BMI 30.0-34.9 (see actual BMI)*; Abnormal weight gain; Attention deficit disorder without hyperactivity; Prediabetes; Generalized osteoarthritis Allergies Active Allergy Reactions Criticality Noted Date Comments Cephalexin 09/06/2012 Stomach pain documented as of this encounter (statuses as of 01/23/2024) Medications Medication Sig Dispensed Refills Start Date End Date Status valACYclovir HCl 1 GM Oral Tablet (Valtrex)Indications:H erpetic gingivostomatitis Take 1 Tablet by mouth in the morning and 1 Tablet before bedtime. 4 Tablet 5 01/02/2023 Active Additional Information Patient taking differently:1,000 mg OralPRN, Reported on 01/23/2024 Minocycline HCl 50 MG Oral Capsule take 1 capsule once daily IN THE MORNING 30 Capsule 11 03/01/2023 Active Additional Information Patient taking differently: Oral PRN, Reported on 01/23/2024 Furosemide 20 MG Oral Tablet (Lasix) Take one every other day in the morning 60 Tablet 3 08/07/2023 Active Celecoxib 200 MG Oral Capsule (CeleBREX)Indications: Generalized osteoarthritis Take 1 Capsule by mouth in the morning. For pain. 90 Capsule 3 08/07/2023 Active Minoxidil for Women 2 % External Solution (Minoxidil) Apply 1 mL of solution to affected areas of scalp twice daily for one month 60 mL 1 08/07/2023 Active Additional Information Patient not taking.Reported on 01/23/2024 Omeprazole 20 MG Oral Capsule Delayed Release (PriLOSEC)Indications: Encounter for long-term (current) use of medications Take 1 Capsule by mouth in the morning. 1 hour before the first meal of the day.. 90 Capsule 1 12/01/2023 Active Amphetamine-Dextroamph et ER 20 MG Oral Capsule Extended Release 24 Hour (Adderall XR)Indications:Attenti on deficit disorder without hyperactivity,MEDICATI ON USE AGREEMENT Take 1 Capsule by mouth in the morning. Do not cut, crush, or chew.. 90 Capsule 0 12/01/2023 Active Amphetamine-Dextroamph etamine 10 MG Oral Tablet (Adderall)Indications: Attention deficit disorder without hyperactivity,MEDICATI ON USE AGREEMENT Take 2 Tablets by mouth in the morning. 3 month supply. 180 Tablet 0 01/02/2024 Active Ibuprofen 600 MG Oral Tablet (Motrin)Indications:Ar thralgia, unspecified joint Take 1 Tablet by mouth in the morning and 1 Tablet before bedtime. 180 Tablet 1 01/04/2024 Active Additional Information Patient taking differently:600 mg [id number] PRN, Reported on 01/23/2024 Apixaban 2.5 MG Oral Tablet (Eliquis) 1 Tablet. 0 10/18/2023 Active Acetaminophen 500 MG Oral Tablet (Tylenol) Take 2 Tablets by mouth every 6 hours as needed for Pain, Breakthrough or Fever >38C(100.5F). 0 10/18/2023 Active Zepbound 2.5 MG/0.5ML Subcutaneous Solution Auto-injector (Tirzepatide-Weight Management)Indications :Obesity, Class I, BMI 30.0-34.9 (see actual BMI) Inject 2.5 mg under the skin once a week. 2 mL 1 01/23/2024 Active Zepbound 5 MG/0.5ML Subcutaneous Solution Auto-injector (Tirzepatide-Weight Management)Indications :Obesity, Class I, BMI 30.0-34.9 (see actual BMI) Inject 5 mg under the skin once a week. Do not start before February 20, 2024. 2 mL 2 02/20/2024 Active documented as of this encounter (statuses as of 01/23/2024) Active Problems Problem Noted Date Diagnosed Date Dependent edema 08/07/2023 Generalized osteoarthritis 08/07/2023 Prediabetes 08/07/2023 Obesity, Class I, BMI 30.0-34.9 (see actual BMI) 02/14/2023 Gastroesophageal reflux disease with esophagitis 06/20/2018 Rosacea 01/21/2014 MEDICATION USE AGREEMENT 06/22/2012 Attention deficit disorder without hyperactivity 06/01/2009 documented as of this encounter (statuses as of 01/23/2024) Resolved Problems Problem Noted Date Diagnosed Date [...] as of this encounter (statuses as of 01/23/2024) Immunizations Name Administration Dates Next Due PPD 08/31/2007,03/27/2005 Seasonal Influenza, Split, IIV3, With Preserve, Inj 10/27/2008 TDAP (age 10 and older)(Boostrix) 07/09/2020 TDAP (age 11 and older)(Adacel) 08/29/2006 documented as of this encounter Social History Tobacco Use Types Packs/Day Years Used Date Smoking Tobacco: Never Smokeless Tobacco: Never Alcohol Use Standard Drinks/Week Comments Not Currently 0 (1 standard drink = 0.6 oz pur e alcohol) 3-4 times per week PHQ-2 Answer Date Recorded PHQ Adult Total [...] Sign Reading Time Taken Comments Blood Pressure - - Pulse - - Temperature - - Respiratory Rate - - Oxygen Saturation - - Inhaled Oxygen Concentration - - Weight 84.8 kg (187 lb) 01/23/2024 7:55 AM EST p t reported Height - - Body Mass Index 33.93 01/12/2024 1:30 PM EST documented in this encounter Progress Notes * Sudha Douglas PA-C - 01/23/2024 7:55 AM EST [facility] CONSULTATION INITIAL CONSULT Referring Physician: Akil Watters MD Patient location: HOME. I was in a hospital or clinic location. After connecting through [employer],patient was verified with two unique identifiers. Patient (or authorized legal sales representative womens health) was then informed that this was a Telemedicine visit and being conducted confidentially over secure lines. Methods to assure confidentiality were taken. Patient acknowledged consent and understanding of pr ivacy and security of the Telemedicine visit. The patient agreed to participate. Nursing Notes: Rich Cortes LPN 01/23/24 0755 Sign at exiting of workspace Chief Complaint Patient presents with Weight Loss The pt would like to establish care with GI nutrition and discuss weight loss options Sofia Eagle is a 58 year old patient who presents to the [facility] for further recommendations. - Initial clinic visit 01/23/2024 Weight 189 lbs Height 62" There is no height or weight on file to calculate BMI. Wt Readings from Last 6 Encounters: 01/12/24 85.2 kg (187 lb 14.4 oz) 09/20/23 81.2 kg (179 lb) 08/07/23 82.6 kg (182 lb) 07/09/20 85.6 kg (188 lb 12.8 oz) 01/29/20 83 kg (183 lb) 01/25/20 83 kg (183 lb) HPI: Visit 01/23/24 The patient suffers from Class I obesity Patient is interested in the following treatment options for obesity: possible medication use. Previous Weight Management Interventions: The patient has tried weight loss in the past without significant buttermaker success. Previous interventions: Self-directed. Has tried keto, low carb/high protein, buying meals that are prepared The patient denies any past pharmacotherapy for weight loss . Current Diet: Describes typical diet history/24 hr recall Breakfast: skips or bagel or bowl of cereal -- might eat breakfast 3 times per week Snacks: none Lunch: late lunch 2p or 3p bag meal or taco power bowl or sandwich Snacks: sometimes chips Dinner: if late lunch no dinner -- out to eat sometimes Snacks: min PB cup Drinks: water (didn't usually drink water), pink lemonade scoop; was drinking regular coke or sweettea-- started cutting that out in the last year; soda 1/2 can, sweet tea one glass per day Restaurant meals: once a week Activity: Walking Had knee replacement in September -- PT twice per week and home exercises Will have right knee january 29 Past Medical History Glaucoma No Hypertension: No CAD: No Seizures: No Patient denies personal or family history of medullary thyroid carcinoma. Patient denies personal or family history of multiple endocrine neoplasia syndrome type II Patient denies personal history of pancreatitis Diabetes: No Insulin Resistance: No PCOS: No History of nephrolithiasis: No. Anxiety/Depression: No Hyperthyroid Has vannesa's Patient Active Problem List Diagnosis Code Attention deficit disorder without hyperactivity F98.8 MEDICATION USE AGREEMENT [id number] Moshe L71.9 Gastroesophageal reflux disease with esophagitis K21.00 Obesity, Class I, BMI 30.0-34.9 (see actual BMI) E66.9 Dependent edema R60.9 Generalized osteoarthritis M15.9 Prediabetes R73.03 Past Surgical History: Procedure Laterality Date DELIVERY 4 HEMORRHOID LIGATION, INTERNAL, [address] Vazquez HEMORRHOIDECTOMY,EXTERNAL, 2 + COLUMNS 12/23/2008 EUA, Hemorrhoidectomy with LigaSure device, [facility] [place], Dr. Kelly TOTAL HYSTERECTOMY 09/2002 FROILAN with lymph nodes Stage 1 ca of cervix. Ovaries remain Review of patient's allergies indicates: Allergen Reactions Cephalexin Stomach pain Current Outpatient Medications Medication Sig Dispense Refill valACYclovir HCl 1 GM Oral Tablet (Valtrex) Take 1 Tablet by mouth in the morning and 1 Tablet before bedtime. (Patient taking differently: Take 1 Tablet by mouth as needed.) 4 Tablet 5 Minocycline HCl 50 MG Oral Capsule take 1 capsule once daily IN THE MORNING (Patient taking differently: Take by mouth as needed.) 30 Capsule 11 Furosemide 20 MG Oral Tablet (Lasix) Take one every other day in the morning 60 Tablet 3 Celecoxib 200 MG Oral Capsule (CeleBREX) Take 1 Capsule by mouth in the morning. For pain. 90 Capsule 3 Omeprazole 20 MG Oral Capsule Delayed Release (PriLOSEC) Take 1 Capsule by mouth in the morning. 1 hour before the first meal of the day.. 90 Capsule 1 Amphetamine-Dextroamphet ER 20 MG Oral Capsule Extended Release 24 Hour (Adderall XR) Take 1 Capsule by mouth in the morning. Do not cut, crush, or chew.. 90 Capsule 0 Amphetamine-Dextroamphetamine 10 MG Oral Tablet (Adderall) Take 2 Tablets by mouth in the morning. 3 month supply. 180 Tablet 0 Ibuprofen 600 MG Oral Tablet (Motrin) Take 1 Tablet by mouth in the morning and 1 Tablet before bedtime. (Patient taking differently: Take 1 Tablet by mouth every 8 hours as needed.) 180 Tablet 1 Minoxidil for Women 2 % External Solution (Minoxidil) Apply 1 mL of solution to affected areas of scalp twice daily for one month (Patient not taking: Reported on 01/23/2024) 60 mL 1 No current facility-administered medications for this visit. 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 Musculoskeletal: Positive for arthralgias. Psychiatric/Behavioral: Negative for dysphoric mood. The patient is not nervous/anxious. Physical Examination: Wt 84.8 kg (187 lb) Comment: pt reported | BMI 33.93 kg/m | BSA 1.93 m Physical Exam Constitutional: Appearance: Normal appearance. HENT: Head: Normocephalic and atraumatic. Pulmonary: Effort: Pulmonary effort is normal. No respiratory distress. Neurological: Mental Status: Patient is alert and oriented to person, place, and time. Psychiatric: Mood and Affect: Mood normal. Assessment and Recommendation: Abnormal weight gain Body mass index is 33.93 kg/m. Class I obesity. Discussed weight management options and would like to proceed with medication weight management. Barriers are consistency. Motivators are feeling better, avoiding/reducing comorbid conditions. Patient goals were discussed in detail at visit. BMR = 1,376 Calories/day Daily calorie needs based on activity level Activity Level Calorie Sedentary: little or no exercise 1,652 Exercise 1-3 times/week 1,893 Exercise 4-5 times/week 2,017 Daily exercise or intense exercise 3-4 times/week 2,134 Intense exercise 6-7 times/week 2,374 Very intense exercise daily, or physical job 2,615 1. Keep a food log. If you bite it, write it! Apps like LoopUp or Volance Calorie goal: 1200 IMPORTANT DIETARY CHANGES WHEN TAKING INJECTABLE WEIGHT LOSS MEDICATION PROTEIN!! PROTEIN!! PROTEIN!! Not getting enough protein can contribute to hair thinning, hair loss, muscle loss and fatigue. -Minimum 60g protein per day -Aim for 20g protein per meal -Daily protein goal 60g-100g Work to eat small portions-- larger portions can lead to indigestion, nausea, vomiting, sulfur burps. - Do NOT skip meals--eat small frequent meals/snacks throughout the day - Eat slowly--take 20-30 minutes for each meal - Chew food thoroughly (to applesauce consistency) -Try eating and drinking by 30 min if struggling with intake Foods high in sugar and carbohydrates can lead to diarrhea. - Avoid sugar sweetened drinks including regular sodas, sweet tea, and fruit juice - Eat foods high in lean protein, vegetables, fruits, fiber, & whole grains - Limit processed foods, excess sugar, refined/white carbs, & fried foods PLAN: Goals as above Anti obesity Medication Indications: BMI >30 or BMI >27 with obesity related comorbidity & no apparent contraindications Goal is to lose ~5% wt loss in 3 mo Wegovy/Saxenda/Zepbound: zebound Ozempic, Victoza, Rene, Mounjaro: no coverage without type II diabetes diagnosis Patient would like to try: zepbound - start Tirzepatide (Zepbound/Mounjaro) -inject 2.5mg subcutaneous once weekly x 4 weeks, then increase to 5 mg subcutaneous once weekly -the inventory assistant website has tutorial videos on how to use the pen. If you are unsure or uncomfortable using the pen for the first time, make a nurse visit in our office for teaching. -the inventory assistant website offers discount cards to help decrease the cost of the medication - possible side effects of tirzepatide include but are not limited to: GI upset, nausea, vomiting, diarrhea, gallbladder disease, & pancreatitis -Do not use with personal or family history of thryoid cancer, multiple endocrine neoplasia type IIor personal history of pancreatitis Sofia was seen today for weight loss. Diagnoses and all orders for this visit: Obesity, Class I, BMI 30.0-34.9 (see actual BMI) Goals as above - Zepbound 2.5 MG/0.5ML Subcutaneous Solution Auto-injector (Tirzepatide-Weight Management); Inject2.5 mg under the skin once a week. - Zepbound 5 MG/0.5ML Subcutaneous Solution Auto-injector (Tirzepatide-Weight Management); Inject 5mg under the skin once a week. Do not start before February 20, 2024. Abnormal weight gain Attention deficit disorder without hyperactivity Continue adderall Avoid phentermine Prediabetes Zepbound will help Generalized osteoarthritis Will have right knee replacement next week Do not start zepbound before surgery (likely will not be through prior auth by that time) Can start after surgery-- imperative to get protein in everyday to aid in healing-- at least 80g while healing I spent a total of 40 minutes on the date of service in preparation, delivery, and documentation ofthe care provided to Sofia Eagle excluding any time spent in the performance of separately billed services. More than 50% of my time spent with patient providing counseling about the benefits ofweight loss, about the patient's nutritional status, detailed explanations about calorie count, types of nutrients to choose, and composition of the meals. Reviewed and discussed weight, weight trends and pertinent labs and test results. Motivational interview provided in order to prepare the patient to achieve future goals. The patient agreed to try all the plan discussed and return in three months. Patient was instructed to message or call in the meantime with any further concerns or questions. Sudha Douglas PA-C, [facility] Nutrition and Weight Management [facility] ([facility]) * Rich Cortes LPN - 01/23/2024 7:50 AM EST The pt stated she is currently in the stated she is in the state of [place] and she is not driving documented in this encounter Nursing Notes * Rich Cortes LPN - 01/23/2024 7:55 AM EST Chief Complaint Patient presents with Weight Loss The pt would like to establish care with GI nutrition and discuss weight loss options documented in this encounter Plan of Treatment Health Maintenance Due Date Last Done Comments Hepatitis C Screening 1982 Hepatitis B (1 of 3 - 19+ 3-dose series) 1983 Cologuard 2009 Colonoscopy 2009 Colorectal Cancer Screening 2009 Fecal Occult Blood Test 2009 Sigmoidoscopy 2009 Zoster Vaccines (1 of 2) 2014 HbA1c 07/15/2022 07/15/2021 COVID-19 Vaccine ( season) 2023 Influenza Vaccine (FLU shot) (#1) [...] as of this encounter Visit Diagnoses Diagnosis Obesity, Class I, BMI 30.0-34.9 (see actual BMI)- Primary Obesity, unspecified Abnormal weight gain Attention deficit disorder without hyperactivity Attention deficit disorder without mention of hyperactivity Prediabetes Other abnormal glucose Generalized osteoarthritis Generalized osteoarthrosis, unspecified site documented in this encounter Care Teams Health Safety Engineer Relationship Specialty Start Date End Date Akil Watters MD [address] [place] [address] PCP - General Family Medicine 01/25/20 documented as of this encounter
--- OUTSIDE RECORDS SUMMARY | 2024-01-30 09:58 | External Medical Summary | Summary of Care ---
Author Name Unknown Organization [facility] Address [address] [place] [address] Phone [phone] Care Team Providers Care Pulmonologist Name Role Phone Akil Watters MD Primary Care Provider [phone] Reason for Visit * Reason Onset Date Comments Fall 01/18/2024 Please disregard fall Fax 01/18/2024 Encounter Details Date Type Department Care Team (Late st Contact Info) Description 01/18/2024 Telephone Family Practice [facility] [address] [place] [id number] Akil Watters MD [address] [place] [id number] Fall (Please disregard fall); Fax Allergies Active Allergy Reactions Criticality Noted Date Comments Cephalexin 09/06/2012 Stomach pain documented as of this encounter (statuses as of 01/19/2024) Medications Medication Sig Dispensed Refills Start Date End Date Status valACYclovir HCl 1 GM Oral Tablet (Valtrex)Indications:He rpetic gingivostomatitis Take 1 Tablet by mouth in the morning and 1 Tablet before bedtime. 4 Tablet 5 01/02/2023 Active Minocycline HCl 50 MG Oral Capsule take 1 capsule once daily IN THE MORNING 30 Capsule 11 03/01/2023 Active Furosemide 20 MG Oral Tablet (Lasix) Take one every other day in the morning 60 Tablet 3 08/07/2023 Active Celecoxib 200 MG Oral Capsule (CeleBREX)Indications:G eneralized osteoarthritis Take 1 Capsule by mouth in the morning. For pain. 90 Capsule 3 08/07/2023 Active Minoxidil for Women 2 % External Solution (Minoxidil) Apply 1 mL of solution to affected areas of scalp twice daily for one month 60 mL 1 08/07/2023 Active Omeprazole 20 MG Oral Capsule Delayed Release (PriLOSEC)Indications:E ncounter for long-term (current) use of medications Take 1 Capsule by mouth in the morning. 1 hour before the first meal of the day.. 90 Capsule 1 12/01/2023 Active Amphetamine-Dextroamphe t ER 20 MG Oral Capsule Extended Release 24 Hour (Adderall XR)Indications:Attentio n deficit disorder without hyperactivity,MEDICATIO N USE AGREEMENT Take 1 Capsule by mouth in the morning. Do not cut, crush, or chew.. 90 Capsule 0 12/01/2023 Active Amphetamine-Dextroamphe tamine 10 MG Oral Tablet (Adderall)Indications:A ttention deficit disorder without hyperactivity,MEDICATIO N USE AGREEMENT Take 2 Tablets by mouth in the morning. 3 month supply. 180 Tablet 0 01/02/2024 Active Ibuprofen 600 MG Oral Tablet (Motrin)Indications:Art hralgia, unspecified joint Take 1 Tablet by mouth in the morning and 1 Tablet before bedtime. 180 Tablet 1 01/04/2024 Active documented as of this encounter (statuses as of 01/19/2024) Active Problems Problem Noted Date Diagnosed Date Dependent edema 08/07/2023 Generalized osteoarthritis 08/07/2023 Prediabetes 08/07/2023 Obesity, Class I, BMI 30.0-34.9 (see actual BMI) 02/14/2023 Gastroesophageal reflux disease with esophagitis 06/20/2018 Rosacea 01/21/2014 MEDICATION USE AGREEMENT 06/22/2012 Attention deficit disorder without hyperactivity 06/01/2009 documented as of this encounter (statuses as of 01/19/2024) Resolved Problems Problem Noted Date Diagnosed Date [...] as of this encounter (statuses as of 01/19/2024) Immunizations Name Administration Dates Next Due PPD [...] encounter Miscellaneous Notes * Telephone Encounter - Mari Pickering LPN - 01/19/2024 12:56 PM EST OV note printed and faxed per request. * Telephone Encounter - Sudha Blair CRNP - 01/18/2024 4:14 PM EST signed * Telephone Encounter - Sanaz Reyes LPN - 01/18/2024 3:44 PM EST Need to complete note from 01/12/24 * Telephone Encounter - Kamini Polo OSA - 01/18/2024 11:46 AM EST [facility] calling to get the Pt's last office visit note from Jan 12 Please fax to [phone] Pt having surgery on January documented in this encounter Plan of Treatment Upcoming Encounters Date Type Department Care Team (Late st Contact Info) Description 01/23/2024 8:00 AM EST Telemedicine Nutrition & Weight Management, [facility] [address] [id number] Sudha Douglas PA-C [address] [place] [address] Health Maintenance Due Date Last Done Comments Hepatitis C Screening 1982 Hepatitis B (1 of 3 - 19+ 3-dose series) 1983 Cologuard 2009 Colonoscopy 2009 Colorectal Cancer Screening 2009 Fecal Occult Blood Test 2009 Sigmoidoscopy 2009 Zoster Vaccines (1 of 2) 2014 HbA1c 07/15/2022 07/15/2021 COVID-19 Vaccine (1 - 2022- season) 2023 Influenza Vaccine (FLU shot) (#1) [...] filedocumented as of this encounter Care Teams Pulmonologist Relationship Specialty Start Date End Date Akil Watters MD [address] [place] [id number] PCP - General Family Medicine 01/25/20 documented as of this encounter
[2024-01-30] MEDS ORDERED: METOCLOPRAMIDE HCL INJ 5 MG/ML 2 ML VIAL ONE (10:11)
[2024-01-30] MEDS ORDERED: FAMOTIDINE/PF 20 MG/2 ML VIAL IV ONE (10:11)
[2024-01-30] MEDS ORDERED: PHENYLEPHRINE 100MCG/ML 10ML SYR IV ONE (10:16)
[2024-01-30] MEDS: ROPIV 0.5% 246mg, Ketorolac 30mg, EPINEPHrine 0.5mg in NSS INFIL SCH (10:32)
[2024-01-30] MEDS ORDERED: PHENYLEPHRINE HCL 10 MG/ML VIAL ONE (10:42)
[2024-01-30] MEDS ORDERED: ePHEDrine sulfate 50 MG/5 ML SYR ONE (10:44)
[2024-01-30] MEDS: TRANEXAMIC ACID 1,000 MG **IV Intra-op IV SCH (11:46)
[2024-01-30] MEDS: ORTHO JOINT ANESTHETIC ONE (11:46)
[2024-01-30] MEDS ORDERED: KETOROLAC 30 MG/ML VIAL ONE (12:04)
--- NOTE | 2024-01-30 12:18 | Post Operative Brief Note ---
Immediate Post Op Note v1 Date of Surgery January 30, 2024 Pre & Post Diagnosis Operation Date: 01/30/24 08:10 Pre-Op Diagnosis: Right Knee Degenerative Joint Disease Post-Op Diagnosis: Right Knee Degenerative Joint Disease I identified the patient and participated in the time-out.: Yes Procedure Operation Date: 01/30/24 08:10 Actual Procedures p Right Total Knee Arthroplasty(Right) - Otis Fragoso MD Surgeon Otis Fragoso MD Plaster Machine Tender Stevie Tuttle PA-C (No fellow avail) Estimated Blood Loss 75 Findings Consistent with Post-Op Diagnosis Fluids 1400 cc Specimens Right knee contents Anesthesia Type MAC Spinal Regional Complications none
--- NOTE | 2024-01-30 12:19 | Operative Report ---
Post Operative Report Pre & Post Diagnosis Operation Date: 01/30/24 08:10 Pre-Op Diagnosis: Right Knee Degenerative Joint Disease Post-Op Diagnosis: Right Knee Degenerative Joint Disease I identified the patient and participated in the time-out.: Yes Procedure Operation Date: 01/30/24 08:10 Actual Procedures p Right Total knee replacement, imageless computer assisted navigation (Right) - Otis Fragoso MD Surgeon Otis Fragoso MD Obstetrician/Gynecologist Stevie Tuttle PA-C (No fellow avail) Estimated Blood Loss 75 Findings See Below Examined Under Anesthesia: ROM -- There was 10 degrees to 125 degrees of flexion, when extended her knee the was a palpable clunk. Ligamentous examination -- revealed stable Simi, posterior drawer, varus and valgus stress at 10 and 30 degrees. [place] Grade IV changes of medial compartment, grade II-III changes patellofemoral compartment, grade II changes lateral compartment. Fluids 1400 cc Specimens Right knee contents Anesthesia Type MAC Spinal Regional Complications none Indications This is a 58-year-old female who has clinical and radiographic findings consistent with osteoarthritis of the right knee and varus alignment. I recommended that a right total knee replacement be performed. The patient understands the risks of surgery, which include but not limited to: bleeding, infection, re-operation, damage to nerves and arteries, continued knee pain, knee stiffness, DVT, and . The patient understands all of these instructions and explanations, all of his questions have been satisfactorily addressed and the patient has elected to proceed. Informed consent was signed. Description of Procedure IMPLANTS: 1. Femur: Triathlon #3 Right PS, with distal femoral pegs. 2. Tibia: Triathlon #3 [place]. 3. Insert: Triathlon #3 x 9 mm PS X3 poly. 4. Patella: Triathlon A29 x 8 mm X3 poly. 5.Palacos cement. Stevie Tuttle PA-C is assisting with positioning, retracting, and closure due to fellow not available. Procedure: The patient was taken to the Operating Room and placed in the supine position after spinal and adductor canal nerve block was administered. My initials and a multidisciplinary time-out were used to identify the right leg as the correct operative limb. A tourniquet was placed high in the thigh. Prior to the incision, 2 grams of intravenous Ancef and TXA were given. The right leg was then prepped and draped in a standard sterile fashion. An Esmarch was used to exsanguinate the leg and the tourniquet was inflated to 250 mmHg. The planned mid-line 20 cm incision was created exposing the extensor mechanism. The medial parapatellar arthrotomy was made and the patella was everted. The patella was addressed first. It was prepared by reaming from 23 mm down to 15 mm. An A29 button was found to fit best. The peg holes were made in the standard fashion. The femur was addressed next and using computer assisted OrthoAlign with 3 degrees of flexion and 0 degrees of valgus, removing 10 mm in the standard fashion for the distal cut. The cut was made and the 4-in-1 cutting block for a size 3 femur was placed. These cuts and the cuts to place the box were made in the standard fashion. The distal peg were created after testing knee stability with trial components in and using the trial femur as a guide in the standard fashion. Our attention was then drawn to the tibia cut with using imageless computer assisted OrthoAlign, taking 2 mm from the medial low side. There was sufficient extension and flexion gap to fit a 9 mm spacer after using cutting block to remove 1.5 mm off medial side, which was tight after the initial cut. A #3 Tibial baseplate fit well. A trial with a 9 mm spacer showed excellent stability in both flexion and extension, with good ligament balance, and thumbs free patellar tracking. Range of motion of 0-130 degrees. The tibial baseplate was prepped for the keel and stem. All components were removed. 90 ml of total knee cocktail were injected into the soft tissues and periosteum. All surfaces were copiously irrigated prior to placement of the components. The femoral component followed by Tibial baseplate were cemented in place and the 9 mm X3 poly was placed. Next, the patellar button was placed using the same cement. Once the cement had cured, the range of motion and stability were unchanged. Again, the range of motion and stability were unchanged. The tourniquet was deflated. Another dose of TXA was given. Hemostasis was obtained. The extensor mechanism was closed with 1-0 Vicryl and 0 Stratafix with the knee bent approximately 60 degrees in a standard fashion. The peritenon and deep fascia was closed with 2-0 Vicryl. The subcutaneous layer was closed with 3-0 Vicryl. The skin was closed with Zipline and shield. The limb was cleaned and dried. 4x4 dressing was placed over top followed by ABDs, sterile Webril, and a foot to thigh Ham bandage. The patient was then transferred to the Recovery Room in stable condition. The sponge and needle counts were correct. POST-OP INSTRUCTIONS: The patient will be WBAT. The patient will be admitted to the hospital. Complete 24-hour course antibiotics. Labs will be obtained during the stay. DVT prophylaxis will included Eliquis for 6 weeks, TEDs, and mechanical foot pumps while in hospital. The dressing will be changed postop day #2-3 and covered with a Silverlon dressing. I attest to the content of the Intraoperative Record and any orders documented therein. Any exceptions are noted below.
--- NOTE | 2024-01-30 12:35 | Operative Report ---
Post Operative Report Pre & Post Diagnosis Operation Date: 01/30/24 08:10 Pre-Op Diagnosis: Right Knee Degenerative Joint Disease Post-Op Diagnosis: Right Knee Degenerative Joint Disease I identified the patient and participated in the time-out.: Yes Procedure Operation Date: 01/30/24 08:10 Actual Procedures p Right Total Knee Arthroplasty(Right) - Otis Fragoso MD Surgeon Otis Fragoso MD Relationship Executive Stevie Tuttle PA-C (No fellow avail) Estimated Blood Loss 75 Findings Consistent with Post-Op Diagnosis Specimens none Description of Procedure I was present during the entire case. I assisted with transferring patient, prepping, draping, retracting, hemostasis, wound closure and dressing application. Patient left the OR in stable condition. Please refer to Dr. Fragoso's operative report for complete details. I attest to the content of the Intraoperative Record and any orders documented therein. Any exceptions are noted below.
[2024-01-30] MEDS ORDERED: traMADol HCL 50 MG TABLET PO PRN (12:37)
[2024-01-30] MEDS ORDERED: bisacodyL 10 MG SUPP PR PRN (12:37)
[2024-01-30] MEDS ORDERED: NALOXONE HCL 0.4 MG/1 ML VIAL/CARP IV PRN (12:37)
[2024-01-30] MEDS ORDERED: METOCLOPRAMIDE HCL INJ 5 MG/ML 2 ML VIAL IV PRN (12:37)
[2024-01-30] MEDS ORDERED: MAGNESIUM HYDROXIDE SUSP 30 ML UDC PO PRN (12:37)
[2024-01-30] MEDS ORDERED: diphenhydrAMINE Capsule 25 MG CAP PO PRN (12:37)
--- NOTE | 2024-01-30 13:18 | Anesthesiology Progress Note ---
Date of Service January 30, 2024 Anesthesia Post Procedure Vital Signs Vital Signs: Temp Pulse Resp BP Pulse Ox O2 Del Method 01/30/24 07:04 36.7 C 93 H 20 116/95 95 Room Air Pain Intensity Left Knee: Pain Intensity: 3 Transfer of Care Handoff Completed per policy Notes Mental Status: alert / awake / arousable and participated in evaluation Patient Amnestic to Procedure: Yes Nausea / Vomiting: adequately controlled Pain: adequately controlled Airway Patency, RR, SpO2: stable & adequate BP & HR: stable & adequate Hydration State: stable & adequate Neuraxial Anesthesia: was administered and sensory block is resolving Anesthetic Complications: no major complications apparent and Pt Satisfied with anesthetic care
[2024-01-30] MEDS: oxyCODONE HCL IR 5 MG TAB (IMMEDIATE RELEASE) PO PRN (14:54)
[2024-01-30] MEDS: SODIUM CHLORIDE 0.9% 1,000 ML IV SCH (14:55)
--- NOTE | 2024-01-30 16:17 | Orthopedic Progress Note ---
Date of Service January 30, 2024 Assessment & Plan (1) Osteoarthritis of right knee: Plan: POD #0 s/p R TKA, doing as well as expected. Resume diet. WBAT with walker. OOB to chair. Continue pain control. Check labs tomorrow. DVT prophylaxis: TEDs 3 weeks, foot pumps while in hospital, Eliquis 2.5 mg BID for 6 weeks. PT/OT. D/C planning. Present on Admission?: Yes Admission and Anticipated Discharge Date Admission Date: January 30, 2024 Subjective A little more pain than the other side. Physical Exam Physical Exam: RLE: BCR < 2 sec. Sensation to light touch intact distally. Wiggling ankle and toes. Calf soft and non-tender. Dressing is clean, dry, intact. Results & Data Vital Signs (Past 12 Hours) Vital Signs Temp Pulse Pulse Resp BP Pulse Ox O2 Del Method 01/30/24 15:28 79 18 125/70 94 Room Air 01/30/24 14:57 36.5 C 72 17 119/72 94 Room Air 01/30/24 14:30 36.4 C L 70 16 111/66 96 Nasal Cannula 01/30/24 14:00 63 12 100/56 L 88 L Room Air 01/30/24 13:45 61 13 104/63 92 Room Air 01/30/24 13:30 65 12 113/58 L 93 Room Air 01/30/24 13:15 62 12 102/64 93 Room Air 01/30/24 13:00 36.1 C L 62 14 107/64 94 Room Air 01/30/24 12:50 79 21 122/68 96 Room Air 01/30/24 12:40 85 14 119/67 95 Oxymask 01/30/24 12:32 36.6 C 83 13 122/69 96 Oxymask 01/30/24 07:04 36.7 C 93 H 20 116/95 95 Room Air O2 Flow Rate 01/30/24 15:28 01/30/24 14:57 01/30/24 14:30 2 01/30/24 14:00 01/30/24 13:45 01/30/24 13:30 01/30/24 13:15 01/30/24 13:00 01/30/24 12:50 01/30/24 12:40 3 01/30/24 12:32 6 01/30/24 07:04 Diagnostic Findings I reviewed the AP & lateral of the right knee which showed expected findings s/p R TKA.
--- NOTE | 2024-01-30 16:21 | XRay Report ---
XR knee RT 1 or 2V routine HISTORY: 58 years-old Female Surgical Post Op right knee arthroplasty COMPARISON: Leg length study radiographs 07/18/2023 TECHNIQUE: 2 views of the right knee FINDINGS: Total joint arthroplasty with patellar resurfacing. Expected postoperative soft tissue swelling with deep tissue air. No acute fracture or unexpected opaque foreign body. IMPRESSION: Total joint arthroplasty with expected postoperative changes. ACT 112: Negative or not required by law. The above report was generated using voice recognition software. It may contain grammatical, syntax o r spelling errors. Electronically signed by: Bentley Bates M.D. 01/30/2024 4:20 PM
[2024-01-30] MEDS: ASCORBIC ACID 500 MG TAB PO SCH (16:37)
[2024-01-30] MEDS: FERROUS GLUCONATE 324 MG TAB PO SCH (16:37)
[2024-01-30] MEDS: Scopolamine CHECK PATCH PLACEMENT SCH (16:37)
[2024-01-30] MEDS: DEXTROAMPHETAMINE/AMPHETAMINE IR 10 MG TAB PO SCH (20:49)
[2024-01-30] MEDS: APIXABAN 2.5 MG TAB PO SCH (20:50)
[2024-01-30] MEDS: DOCUSATE SODIUM 100 MG CAP PO SCH (20:50)
[2024-01-30] MEDS: SENNA 8.6 MG TAB PO SCH (20:50)
[2024-01-31 06:59] LABS: Hematocrit (blood only) 28.9 % (37.0-47.0); Hemoglobin 9.8 g/dl (12.0-16.0); Mean Corpuscular Hemoglobin 30.5 pg (25.0-34.0); Mean Corpuscular Hgb Conc 33.9 g/dL (32.0-36.0); Mean Platelet Volume 9.6 fL (9.4-12.4); Platelet Count 323 K/uL (130-400); RDW Coefficient of Variation 13.6 % (11.5-14.5); RDW Standard Deviation 45.2 fL (36.4-46.3); Red Blood Count 3.21 M/uL (4.20-5.40)
[2024-01-31 07:28] LABS: BUN Creatinine Ratio 22.7 (10-20); Calcium 8.6 mg/dl (8.6-10.3); Creatinine Clr Calc Pharmacy 69.7 ml/min; Est GFR (African American) 83.4 ml/min; Est GFR (Non-African American) 71.9 ml/min; Potassium 4.1 mmol/L (3.5-5.1)
[2024-01-31] MEDS: PANTOprazole 40 MG TAB PO SCH (08:13)
[2024-01-31] MEDS: MULTIVITAMIN TAB PO SCH (08:13)
[2024-01-31] MEDS: DEXTROAMPHETAMINE/AMPHETAMINE ER 10 MG CAP PO SCH (08:28)
--- NOTE | 2024-01-31 08:46 | Orthopedic Progress Note ---
Date of Service January 31, 2024 Assessment & Plan (1) Osteoarthritis of right knee: Plan: POD #1 s/p R TKA, doing as well as expected. Resume diet. WBAT with walker. OOB to chair. Continue pain control. Check labs tomorrow. DVT prophylaxis: TEDs 3 weeks, foot pumps while in hospital, Eliquis 2.5 mg BID for 6 weeks. PT/OT. D/C planning for home later today if passes PT. Admission and Anticipated Discharge Date Admission Date: January 30, 2024 Subjective Doing better, pain controlled with single Oxycodone. Only has discomfort in her thigh when she moves. Physical Exam Physical Exam: Overall looks very comfortable. RLE: BCR < 2 sec. Sensation to light touch intact distally. Wiggling ankle and toes. Calf soft and non-tender. Able to preform straight leg raise. Dressing is clean, dry, intact. Results & Data Vital Signs (Past 12 Hours) Vital Signs Temp Pulse Resp BP Pulse Ox O2 Del Method 01/31/24 07:13 36.4 C L 71 18 118/68 96 Room Air 01/31/24 03:18 36.3 C L 60 16 108/66 99 Room Air 01/30/24 22:36 36.5 C 73 18 97/57 L 96 Room Air Laboratory Results Laboratory Results WBC 10.40 K/ul (4.8-10.8) 01/31/24 06:29 RBC 3.21 M/uL (4.20-5.40) L 01/31/24 06:29 Hgb 9.8 g/dl (12.0-16.0) L 01/31/24 06:29 Hct 28.9 % (37.0-47.0) L 01/31/24 06:29 MCV 90.0 fL (80.0-100.0) 01/31/24 06:29 MCH 30.5 pg (25.0-34.0) 01/31/24 06:29 MCHC 33.9 g/dL (32.0-36.0) 01/31/24 06:29 RDW Std Deviation 45.2 fL (36.4-46.3) 01/31/24 06:29 RDW Coeff of Joshua 13.6 % (11.5-14.5) 01/31/24 06:29 Plt Count 323 K/uL (130-400) 01/31/24 06:29 MPV 9.6 fL (9.4-12.4) 01/31/24 06:29 Sodium 139 mmol/L (136-145) 01/31/24 06:29 Potassium 4.1 mmol/L (3.5-5.1) 01/31/24 06:29 Chloride 109 mmol/L (98-107) H 01/31/24 06:29 Carbon Dioxide 24 mmol/L (21-32) 01/31/24 06:29 Anion Gap 6 (3-11) 01/31/24 06:29 BUN 20 mg/dl (6-23) 01/31/24 06:29 Creatinine 0.88 mg/dl (0.6-1.2) 01/31/24 06:29 Est Cr Clr Drug Dosing 69.7 ml/min 01/31/24 06:29 Est GFR ( Amer) 83.4 ml/min 01/31/24 06:29 Est GFR (Non-Af Amer) 71.9 ml/min 01/31/24 06:29 BUN/Creatinine Ratio 22.7 (10-20) H 01/31/24 06:29 Glucose 108 mg/dl (70-99(Fasting)) H 01/31/24 06:29 POC Glucose 119 mg/dl (70-99) H 01/30/24 07:06 Calcium 8.6 mg/dl (8.6-10.3) 01/31/24 06:29 Impressions Knee X-Ray 01/30/24 12:38 XR knee RT 1 or 2V routine HISTORY: 58 years-old Female Surgical Post Op right knee arthroplasty COMPARISON: Leg length study radiographs 07/18/2023 TECHNIQUE: 2 views of the right knee FINDINGS: Total joint arthroplasty with patellar resurfacing. Expected postoperative soft tissue swelling with deep tissue air. No acute fracture or unexpected opaque foreign body. IMPRESSION: Total joint arthroplasty with expected postoperative changes. ACT 112: Negative or not required by law. The above report was generated using voice recognition software. It may contain grammatical, syntax or spelling errors. Electronically signed by: Bentley Bates M.D. 01/30/2024 4:20 PM
--- NOTE | 2024-01-31 11:19 | Discharge Summary ---
Date of Service January 31, 2024 Admission HPI Per Admitting Provider History of Present Illness Sofia is a 58-year-old female here today for preop history and physical for right total knee arthroplasty with Dr. Fragoso. She previously had her left knee done 09/2023 and she is doing very well with that and is electing to proceed with getting her left knee done. She completed bilateral Euflexxa series on 02/08 and also tried cortisone injections on 05/05/2023 and neither injections were helpful. She has been having considerable pain in her right knee. This is worse with walking and activity. She is still doing physical therapy for her left knee. She denies any history of heart attack, blood clot, stroke. She has Micha's thyroiditis but does not need medication for this and gets this regularly checked. She does not smoke. She denies ever having a history of MRSA infection. She had cervical cancer in 2002 for which she underwent a partial hysterectomy. She did not have to do any chemotherapy or radiation treatment. She denies any recent sicknesses [1] Admission Exam Per Admitting Provider Physical Exam Vitals & Measurements T: 36.6 C HR: 100 (Monitored) BP: 120/72 SpO2: 98% HT: 160 cm WT: 84 kg WT: 84.000 kg (Dosing) BMI: 32.81 General: Pt is well nourished, seated on the exam table AA&O, in NAD, calm and cooperative during exam HENT: Nontraumatic, no gross deformity, hearing and vision grossly in-tact, PERRL Heart: +S1, +S2, RRR, no murmurs appreciated Lungs: CTABL, no wheezing appreciated Focusing on the patient's RIGHT lower extremity: 2+ DP pulse Sensation to light touch is intact Motor to the gastroc soleus, tibialis anterior, and EHL is 5/5. Medial Joint-Line tenderness Able to perform straight leg raise. -NEGATIVE Dawna's No Effusion Range of motion 0 to 120 [2] Principal Diagnosis Right knee osteoarthritis Discharge Exam Overall looks very comfortable. RLE: BCR < 2 sec. Sensation to light touch intact distally. Wiggling ankle and toes. Calf soft and non-tender. Able to preform straight leg raise. Dressing is clean, dry, intact. Discharge Data Allergies Allergy/AdvReac Type Severity Reaction Status Date / Time cephalexin AdvReac Mild stomach Verified 01/30/24 07:01 pain Procedures Performed Operation Date: 01/30/24 08:10 Actual Procedures p Right Total Knee Arthroplasty(Right) - Otis Fragoso MD Ordered Studies 01/30/24 05:00 US - OR guided needle placemen Routine Hospital Course (1) Osteoarthritis of right knee: Had an uneventful overnight stay following right total knee arthroplasty. She will be discharged home later this morning with in-home physical therapy for the first 2 weeks. She will be on Eliquis 2.5 mg twice daily for 6 weeks for DVT prophylaxis and oxycodone for pain control. Patient is very pleased with the results of the surgery and states that she essentially has no pain currently. POD #1 s/p R TKA, doing as well as expected. Resume diet. WBAT with walker. OOB to chair. Continue pain control. Check labs tomorrow. DVT prophylaxis: TEDs 3 weeks, foot pumps while in hospital, Eliquis 2.5 mg BID for 6 weeks. PT/OT. D/C planning for home later today if passes PT. Total Time Total Time Spent Total Time Spent (In Minutes): 25 mins Discharge Plan Discharge Items Patient Disposition: Home - Home Health Services Reason For Visit: Right Knee Degenerative Joint Disease Discharge Diagnosis: right knee degenerative joint disease s/p right total knee arthroplasty Activity: Per Instructions section Bathing: Keep incision dry Driving/Machine Use: No driving until cleared by lab specialist Weightbearing: Right weightbearing Weightbearing Comment: As tolerated with walker assistance Non-emergency contact: Surgeon Call non-emergency contact if: your pain is worsening, your temperature is above 101.5, your wound has increased redness, your wound has increased drainage and your wound pain has increased Follow-up/Referrals: Akil Watters MD [Primary Care Provider] - Christianne Irby PA-C [Physician Dining Service Inspector] - 02/01/24 9:15 am Diet: Regular Addtl Attending Provider Instructions: POST OPERATIVE DISCHARGE INSTRUCTIONS Pain Control Please take the follow medications for pain control, as well as icing and elevating your operative extremity. Pain after surgery is to be expected. We may not be able to take away all of your pain, but the goal is to make your pain manageable - Extra strength Tylenol 1,000mg (2 tabs) every 8 hours - Oxycodone 5-10mg (1-2tabs) every 4-6 hours as needed DVT Prophylaxis With any surgery, you are at increased risk for blood clots. Please take the follow measures to prevent blood clots and read the warning signs to watch for. Please take the follow anticoagulant: Resume your Eliquis, taking this twice a day as prescribed If you were given YARELY compression stockings, these are to be worn on both legs for 18-20 hours daily for 2 weeks, or for 3 weeks for any lower extremity surgery. Warning signs: Calf pain, lower extremity swelling, numbness/tingling, skin discoloration, increased pain, shortness of breath, chest pain. Please contact our office if you experience any of these symptoms or call 911 if you are having trouble breathing. Ice Ice your operative site at least 5 times a day for 15-30 minutes at a time, for the first three days, then as needed. This will help to reduce swelling and pain. Make sure you have a thin cloth between the ice or cooling unit and your skin to prevent gilmore bite. This is especially important if you received a nerve block. Diet/Nausea/Vomiting Start by drinking clear liquids and eating crackers. If you can tolerate this, then you may resume your normal diet. If you feel nauseated or vomit, take Zofran/ondansetron (if prescribed). Please call our office if you have intractab le nausea or vomiting, or, if after hours, you may go to the Emergency Room for help. Surgical Dressing Please leave on any dressing until you are seen by either PT or PA for your post-operative appointment, unless you are otherwise instructed. If there are any issues with your dressing please give our office a call. Weight bearing, Range of Motion, Activity You will be weight bearing as tolerated on your operative site. you may use crutches or walker to assist in ambulation. Physical therapy You will do your rehab for the first two weeks with home health. Then you will begin outpatient physical therapy. It is very important you follow your rehab protocol and do your exercises as instructed by your provider and physical therapist. Wound care and showering We will inspect your wound at your first post-operative visit. It is normal to see some dried blood on the dressing. Do not remove your dressing, paper strips or sutures yourself unless otherwise instructed. Showering is allowed post op day 3. Do not scrub or remove any dressings, unless you are otherwise instructed. Once your dressing is changed in the office to the water-resistant dressing. You can shower with this on as long as all the edges are in tact. To promote wound healing, we recommend taking a multi-vitamin, or taking 500mg Vitamin C supplement twice a day for two weeks and 325mg Iron supplement twice a day for two weeks. This is especially important if you had a total joint replacement. Constipation Constipation is a common side effect of narcotic pain medication, dehydration after surgery and iron supplement (if you were instructed to begin that after surgery). We recommend purchasing an [id number]-[id number] laxative such as Milk of Magnesia, Colace, Dulcolax, Miralax or Senna from a local pharmacy, and taking it as instructed. Stay hydrated and you may increase your fiber in your diet as well. Call our clinic if any questions. Driving You may not drive while taking narcotic pain medication or while in a cast, splint, sling or brace. Driving will be discussed at your first post op appointment Return to Work Your return to work depends on what surgery was done and what type of work you do. Please bring any paperwork your employer needs completed to your first post-operative visit. Also, bring a description of your job duties, as this helps us to understand what risks you may face at work. Travel Avoid long distance travel (greater than 1 hour) in airplanes and cars for the first 6 weeks after surgery. Follow-up Please attend your post operative appointments as scheduled. At these appointments, we may do dressing change and remove any sutures/mery/Zip-line 10-14 days after your surgery. If you do not know your post operative appointment dates or times please call the office at [phone] When to call the office It is normal to have swelling and bruising in the limb that was operated on. This will improve with time. It is also normal to have fevers for the first 2 days after surgery. Reasons you should call your doctor include: Uncontrolled pain; Nausea, vomiting, or constipation that does not improve with medication; Fevers over 101.5, chills, sweats; Drainage or bleeding from the wound; Foul odor; Spreading areas of redness; calf pain or swelling, shortness of breath, chest pain; Any other concerns You may call the office at [phone]. If it is a medical emergency please call 911. Pending Studies at Discharge: No Stand-Alone Forms: [facility], Pain - Opioid Pain Management, Smoking Cessation Medications and DC Order Prescriptions: New oxycodone 5 mg Tablet 5 - 10 mg PO Q4H MDD Ongoing treatment PRN (Reason: Postoperative pain control) Qty: 28 0RF Eliquis 2.5 mg Tablet 2.5 mg PO BID 42 Days Qty: 84 0RF Continued dextroamphetamine-amphetamine [Adderall] 10 mg Tablet 10 mg PO BID Patient Comments: MID MORNING AND IN THE AFTERNOON valacyclovir 500 mg Tablet 1,000 mg PO UD PRN (Reason: Cold Sores) dextroamphetamine-amphetamine [Adderall] 20 mg Tablet 20 mg PO QAM Patient Comments: time released minocycline 50 mg Capsule 50 mg PO UD PRN (Reason: FOLLICULITIS) omeprazole 20 mg Capsule,Delayed Release(Dr/Ec) 20 mg PO QAM furosemide [Lasix] 20 mg Tablet 20 mg PO Q OTHER DAY acetaminophen [Tylenol Extra Strength] 500 mg tablet 1,000 mg PO Q8 PRN (Reason: Pain) Santos/Other Patient Handouts: DVT Post Op Prevention Admission Data Admit Date/Time: 01/30/24 12:38 Attending Provider: Otis Fragoso Admit Provider: Otis Fragoso Primary Care Provider: Akil Watters Other Providers: [facility],Home Health Other Interventions: Discharge Summary Assessment (RN) Last Done: 01/31/24 10:17
--- OUTSIDE RECORDS SUMMARY | 2024-01-31 20:40 | External Medical Summary | Summary of Care ---
Author Name Unknown Organization [facility] Address [address] [place] [address] Phone [phone] Care Team Providers Care Sort Operations Supervisor Name Role Phone Akil Watters MD Primary Care Provider [phone] Reason for Visit * Reason Onset Date Comments Information 01/30/2024 Encounter Details Date Type Department Care Team (Late st Contact Info) Description 01/30/2024 Telephone Family Practice [facility] [address] [place] [address] Akil Watters MD [address] [place] [address] Information Allergies Active Allergy Reactions Criticality Noted Date Comments Cephalexin 09/06/2012 Stomach pain documented as of this encounter (statuses as of 01/30/2024) Medications Medication Sig Dispensed Refills Start Date [...] Active Additional Information Patient taking differently:600 mg [id number] PRN, Reported on 01/23/2024 Apixaban 2.5 MG [...] as of this encounter (statuses as of 01/30/2024) Active Problems Problem Noted Date Diagnosed Date Dependent edema 08/07/2023 Generalized osteoarthritis 08/07/2023 Prediabetes 08/07/2023 Obesity, Class I, BMI 30.0-34.9 (see actual BMI) 02/14/2023 Gastroesophageal reflux disease with esophagitis 06/20/2018 Rosacea 01/21/2014 MEDICATION USE AGREEMENT 06/22/2012 Attention deficit disorder without hyperactivity 06/01/2009 documented as of this encounter (statuses as of 01/30/2024) Resolved Problems Problem Noted Date Diagnosed Date [...] as of this encounter (statuses as of 01/30/2024) Immunizations Name Administration Dates Next Due PPD [...] encounter Miscellaneous Notes * Telephone Encounter - Mali Ibanez PHARM Tech - 01/30/2024 9:57 AM EST Pt called asking if the office has any Eliquis coupons for the pt. Please advise Pt grisel please Thank you, Mali Ibanez [facility] Simulation Software Engineer II [facility])(Formerly Telepharm[facility]) 01/30/2024,9:58 AM documented in this encounter Plan of Treatment Upcoming Encounters Date Type Department Care Team (Late st Contact Info) Description 04/23/2024 8:40 AM EDT Telemedicine Nutrition & Weight Management, [facility] [address] [place] [address] Nessa Walls RDN [address] [place] [address] 07/26/2024 11:00 AM EDT Telemedicine Nutrition & Weight Management, [facility] [address] [address] Sudha Douglas PA-C [address] [place] [address] Health Maintenance Due Date Last Done Comments [...] filedocumented as of this encounter Care Teams Sort Operations Supervisor Relationship Specialty Start Date End Date Akil Watters MD [address] [place] [address] PCP - General Family Medicine 01/25/20 documented as of this encounter
--- OUTSIDE RECORDS SUMMARY | 2024-01-31 20:40 | External Medical Summary | Summary of Care ---
Author Name Unknown Organization [facility] Address [address] [place] [address] Phone [phone] Care Team Providers Care Integrated Program Teacher Name Role Phone Akil Watters MD Primary Care Provider [phone] Reason for Visit * Reason Onset Date Comments Information 01/30/2024 Encounter Details Date Type Department Care Team (Late st Contact Info) Description 01/30/2024 Telephone Family Practice [facility] [address] [place] [address] Akil Watters MD [address] [place] [...] Active Additional Information Patient taking differently:600 mg [id number] PRN, Reported on 01/23/2024 Apixaban 2.5 MG [...] 01/30/2024) Immunizations Name Administration Dates Next Due Diptheria/Tetanus (Adult) 04/27/1993 PPD 08/31/2007,03/27/2005 Seasonal Influenza, Split, IIV3, With [...] encounter Miscellaneous Notes * Telephone Encounter - Courtney Peres CPhT - 01/30/2024 12:20 PM EST Patients calling to check status of request, relayed previous note. Thank you, Courtney Peres, Loft Worker I [facility] (Formerly Telepharmacy) 01/30/2024, 12:20 PM * Telephone Encounter - Mattie Triana LPN - 01/30/2024 10:55 AM EST Called home number and LM for them to return call. Regarding message below. Checked with our pharmacist and was told that the company is no longer printing coupons. They can try going through [employer] or [employer] for discount. Or they can go to the Eliquis web site and they can help them. * Telephone Encounter - Mali Ibanez PHARM Tech - 01/30/2024 9:57 AM EST Pt called asking if the office has any Eliquis coupons for the pt. Please advise Pt grisel please Thank you, Mali Ibanez, [facility] Senior Climate Advisor II [facility])(Formerly Telepharmacy) 01/30/2024,9:58 AM documented in this encounter Plan of Treatment Upcoming Encounters Date Type Department Care Team (Late st Contact Info) Description 04/23/2024 8:40 AM EDT Telemedicine Nutrition & Weight Management, [facility] [address] [place] [address] Nessa Walls RDN [address] [place] [address] 07/26/2024 11:00 AM EDT Telemedicine Nutrition & Weight Management, [facility] [address] [address] Sudha Douglas PA-C [address] [place] [address] Health Maintenance Due Date Last Done Comments Hepatitis C Screening 1982 Hepatitis B (1 of 3 - 19+ 3-dose series) 1983 Cologuard 2009 Colonoscopy 2009 Colorectal Cancer Screening 2009 Fecal Occult Blood Test 2009 Sigmoidoscopy 2009 Zoster Vaccines (1 of 2) 2014 HbA1c 07/15/2022 07/15/2021 COVID-19 Vaccine (2022-24 season) 2023 Influenza Vaccine (FLU shot) (#1) 2023 10/27/2008, 10/27/2008 Mammogram 08/04/2024 08/04/2023, 110 04/2015, 03/30/2015, Additional history exists Depression Screening [...] filedocumented as of this encounter Care Teams Integrated Program Teacher Relationship Specialty Start Date End Date Akil Watters MD [address] [place] [address] PCP - General Family Medicine 01/25/20 documented as of this encounter
--- OUTSIDE RECORDS SUMMARY | 2024-01-31 20:40 | External Medical Summary | Summary of Care ---
Author Name Unknown Organization [facility] Address [address] [place] [address] Phone [phone] Care Team Providers Care Social Services Designee Name Role Phone Akil Watters MD Primary Care Provider [phone] Reason for Visit * Reason Onset Date Comments Information 01/30/2024 Encounter Details Date Type Department Care Team (Late st Contact Info) Description 01/30/2024 Telephone Family Practice [facility] [address] [place] [address] Akil Watters MD [address] [place] [address] Information Allergies Active Allergy Reactions Criticality [...] Active Additional Information Patient taking differently:600 mg [id number] PRN, Reported on 01/23/2024 Apixaban 2.5 MG [...] encounter Miscellaneous Notes * Telephone Encounter - Mattie Triana LPN - 01/30/2024 10:55 AM EST Called home number and LM for them to return call. Regarding message below. Checked with our pharmacist and was told that the [employer] is no longer printing coupons. They can try going through [employer] or [employer] for discount. Or they can go to the [employer] web site and they can help them. * Telephone Encounter - Mali Ibanez PHARM Tech - 01/30/2024 9:57 AM EST Pt called asking if the office has any [employer] coupons for the pt. Please advise Pt grisel please Thank you, Mali Ibanez, [facility] Facility Supervisor II [facility])(Formerly Telepharmacy) 01/30/2024,9:58 AM documented in this encounter Plan of Treatment Upcoming Encounters Date Type Department Care Team (Late st Contact Info) Description 04/23/2024 8:40 AM EDT Telemedicine Nutrition & Weight Management, [facility] [address] [facility] [place] [address] Nessa Walls RDN [address] [place] [address] 07/26/2024 11:00 AM EDT Telemedicine Nutrition & Weight Management, [facility] [address] [place] [address] Sudha Douglas PA-C [address] [place] [address] Health Maintenance Due Date Last Done Comments [...] filedocumented as of this encounter Care Teams Social Services Designee Relationship Specialty Start Date End Date Akil Watters MD [address] [place] [address] PCP - General Family Medicine 01/25/20 documented as of this encounter
== END 2024-01-31 10:53 | disposition home health service (06) ==
LOC: 3E 06:43 → ASU 06:43